=== PATIENT | female | born 1940 | race Caucasian/White ===

== ENCOUNTER 2016-03-14 10:08 | Inpatient (IN) | payer MEDICARE, OTHER ==
--- NOTE | 2016-03-14 11:26 | RAD ---
Study: Single Frontal View of the Chest. Indication:difficulty breathing Comparison: December 22, 2015. Impression: Moderate cardiomegaly without failure. Atherosclerosis aorta. Emphysema, otherwise lungs clear. No acute osseous abnormality. Electronically signed by: Solitario Beaver MD 03/14/2016 11:24
--- NOTE | 2016-03-14 11:33 | ED.PDOC ---
History of Present Illness - General Chief Complaint: Respiratory Problem Stated Complaint: increased wheezing and difficulty breathing Time Seen by Provider: 03/14/16 11:26 Additional Information: HAS BEEN SEEN X 3 IN PCP'S OFFICE PAST WEEKS. HAS GOTTEN ABX, AND STEROIDS WITH SOME WAXING AND WANING SUCCESS. NOW IS HERE AGAIN WITH TREATMENT FAILURE. - History of Present Illness Timing/Duration: 1 week Severity: moderate Improving Factors: nothing Worsening Factors: nothing Associated Symptoms: cough Allergies/Adverse Reactions: Allergies Penicillins Allergy (Verified 03/14/16 10:40) Rash Sulfa Drugs Allergy (Verified 03/14/16 10:40) Other Causes swelling to face Home Medications: Ambulatory Orders Albuterol Inhaler [Ventolin Hfa Inhaler] 90 mcg INH RTQ4 PRN 05/03/15 Albuterol Sulfate Nebs [Proventil Nebs] 1 ea INH RTQID PRN 05/03/15 Alendronate Sodium [Fosamax] 70 mg PO MO 05/03/15 Aspirin Buffered (Matt Carb-Mag [Bufferin Low Dose 81 mg] 81 mg PO BEDTIME Fluticasone/Salmeterol 250/50 [Advair 250/50 Diskus] 1 puff INH BID #0 Levothyroxine Sodium [Synthroid] 0.1 mg PO DAILY@0700 05/03/15 Lorazepam [Ativan] 1 mg PO TID 05/03/15 Metoprolol Succinate [Metoprolol Succinate ER] 100 mg PO DAILY 05/03/15 Montelukast Sodium [Singulair] 10 mg PO BEDTIME 05/03/15 Ascorbic Acid [Vitamin C] 1,000 mg PO DAILY 12/20/15 Furosemide [Lasix] 40 mg PO .[id number] 12/20/15 Nicotine Patch 21 mg [Habitrol Patch 21mg] 21 mg TOP Q72H 12/20/15 Tiotropium [place] Monohydrate [Spiriva Handihaler] 1 puff IN DAILY 12/20/15 Bifidobacterium Infantis [Align] 4 mg PO DAILY #30 cap 12/25/15 Nicotine Patch 21 mg [Habitrol Patch 21mg] 1 ea TD DAILY #14 patch 12/25/15 Pantoprazole Sodium [Protonix] 40 mg PO ACBK #14 tab 12/25/15 levoFLOXacin [Levaquin] 500 mg PO QD #14 tab 12/25/15 predniSONE [Prednisone] 5 mg PO BID #0 12/25/15 predniSONE [Prednisone] 40 mg PO DAILY #8 tab 12/25/15 Review of Systems - Review of Systems Constitutional: Denies: chills, fever EENTM: Denies: blurred vision, nose pain, nose congestion, throat swelling, mouth pain, mouth swelling Respiratory: States: cough, short of breath, other - PROD OF CLEAR SPUTUM, Cardiology: Denies: chest pain, edema, palpitations, syncope Gastrointestinal/Abdominal: Denies: abdominal pain, diarrhea, nausea, vomiting Genitourinary: States: no symptoms reported Musculoskeletal: Denies: back pain, neck pain Skin: States: no symptoms reported Neurological: States: no symptoms reported Endocrine: Denies: excessive sweating, flushing, intolerance to cold, intolerance to heat Hematologic/Lymphatic: Denies: no symptoms reported Past Medical History (General) - Patient Medical History Hx Seizures: No Hx Stroke: No Hx Dementia: No Hx Asthma: Yes Hx of COPD: Yes Hx Cardiac Disorders: Yes Hx Congestive Heart Failure: No Hx Pacemaker: No Hx Hypertension: Yes Hx Thyroid Disease: Yes Hx Diabetes: No Hx Gastroesophageal Reflux: Yes Hx Renal Disease: No Hx Cancer: No Hx of HIV: No Hx Hepatitis C: No Hx MRSA: No - Vaccination History Hx Tetanus, Diphtheria Vaccination: Yes Hx Influenza Vaccination: Yes - 2016 Hx Pneumococcal Vaccination: Yes - Social History Hx Tobacco Use: Yes Hx Chewing Tobacco Use: No Hx Alcohol Use: No Hx Substance Use: No Hx Substance Use Treatment: No Hx Depression: No Hx Physical Abuse: No Hx Emotional Abuse: No Hx Suspected Abuse: No - Female History Patient : No Family Medical History - Family History Mother Family History: No Known Name: Belle Villela Living Status: Age at (years of age): 85 Hx Family Asthma: No Hx Family Congestive Heart Failure: No Hx Family Hypertension: No Hx Family Stroke: No Hx Cardiac Disease: No Hx Family Diabetes: No Hx Family Cancer: No Hx Family;Other: Bowel obstruction Father Name: Sreedhar Villela Living Status: Age at (years of age): 79 Cause of : Heart Attack Hx Family Congestive Heart Failure: Yes Hx Family Hypertension: Yes Hx Cardiac Disease: Yes Brother Living Status: Age at (years of age): 90 Hx Family Asthma: No Hx Family Cancer: Yes - Prostate Physical Exam - Physical Exam General Appearance: Alert, Comfortable, Other - MILD RESP DISTRESS Eye Exam: bilateral normal Ears, Nose, Throat: hearing grossly normal, normal ENT inspection Neck: non-tender, full range of motion, supple Respiratory: other - PROLONGED EXP PHASE WITH WHEEZES, RALES, PROLONGED EXP PHASE, NO RHONCHI Cardiovascular/Chest: regular rate, rhythm, no murmur Gastrointestinal/Abdominal: non tender, soft, no organomegaly Back Exam: normal inspection, no CVA tenderness Extremity: normal range of motion, normal inspection, no pedal edema Neurologic: no motor/sensory deficits, normal mood/affect, oriented x 3 Skin Exam: normal color, warm/dry Lymphatic: no adenopathy Progress - EKG/XRAY/CT XRAY: chest - NSS Departure - Departure Clinical Impression: COPD (chronic obstructive pulmonary disease) with acute bronchitis Hypertension Qualifiers: Hypertension type: essential hypertension Qualifier Code: (I10) Essential ( primary) hypertension Time of Disposition: 12:03 - D/W NEIDA AGREES TO ADMIT. DDX PARTIALLY TREATED PNEUMONIA Disposition: Discharge to Home or Self Care Condition: Fair Departure Forms: ED Discharge - Pt. Copy, Patient Portal Self Enrollment Home Medications: Ambulatory Orders Albuterol Inhaler [Ventolin Hfa Inhaler] 90 mcg INH RTQ4 PRN 05/03/15 Albuterol Sulfate Nebs [Proventil Nebs] 1 ea INH RTQID PRN 05/03/15 Alendronate Sodium [Fosamax] 70 mg PO MO 05/03/15 Aspirin Buffered (Matt Carb-Mag [Bufferin Low Dose 81 mg] 81 mg PO BEDTIME Fluticasone/Salmeterol 250/50 [Advair 250/50 Diskus] 1 puff INH BID #0 Levothyroxine Sodium [Synthroid] 0.1 mg PO DAILY@0700 05/03/15 Lorazepam [Ativan] 1 mg PO TID 05/03/15 Metoprolol Succinate [Metoprolol Succinate ER] 100 mg PO DAILY 05/03/15 Montelukast Sodium [Singulair] 10 mg PO BEDTIME 05/03/15 Ascorbic Acid [Vitamin C] 1,000 mg PO DAILY 12/20/15 Furosemide [Lasix] 40 mg PO .[id number] 12/20/15 Nicotine Patch 21 mg [Habitrol Patch 21mg] 21 mg TOP Q72H 12/20/15 Tiotropium [place] Monohydrate [Spiriva Handihaler] 1 puff IN DAILY 12/20/15 Bifidobacterium Infantis [Align] 4 mg PO DAILY #30 cap 12/25/15 Nicotine Patch 21 mg [Habitrol Patch 21mg] 1 ea TD DAILY #14 patch 12/25/15 Pantoprazole Sodium [Protonix] 40 mg PO ACBK #14 tab 12/25/15 levoFLOXacin [Levaquin] 500 mg PO QD #14 tab 12/25/15 predniSONE [Prednisone] 5 mg PO BID #0 12/25/15 predniSONE [Prednisone] 40 mg PO DAILY #8 tab 12/25/15
[2016-03-14] MEDS ORDERED: IPRATROPIUM/ALBUTEROL 3 ML VIAL NEB ONE (11:52)
[2016-03-14] MEDS ORDERED: cefTRIAXone SODIUM 1 GM in SODIUM CHL 0.9% 50ML MIN-BAG+ 50 ML IVPB ONE (11:53)
[2016-03-14] MEDS ORDERED: methylPREDNISolone SODIUM SUC 125 MG/2 ML VIAL IV ONE (11:53)
[2016-03-14] MEDS ORDERED: AZITHROMYCIN IV 500 MG in SODIUM CHLORIDE 0.9% 250ML 250 ML IVPB ONE (11:54)
[2016-03-14] MEDS ORDERED: cefTRIAXone SODIUM 1 GM VIAL ONE (12:21)
[2016-03-14] MEDS ORDERED: SODIUM CHL 0.9% 50ML MIN-BAG+ 50 ML IVPB ONE (12:21)
--- NOTE | 2016-03-14 12:40 | HP ---
SUPERVISING PHYSICIAN: Nick Valiente M.D. CHIEF COMPLAINT: Increased shortness of breath with wheezing. HISTORY OF PRESENT ILLNESS: Ms. Rodriguez is a 75 year-old female with a significant history of chronic obstructive pulmonary disease and multiple exacerbations requiring hospitalization within the last year. Today, she presented to the Emergency Room complaining of worsening shortness of breath and wheezing. She noted that she had been to see her primary care providers 3 times within the last week. Initially on 03/09 she was seen in the clinic for congestion, cough and productive sputum with wheezing. She was started on a Z- Marcos and given a tapering dose of Prednisone as well as a Rocephin injection IM. She then presented back on 03/11 with no improvement in symptoms and given additional Rocephin injection. Today, she presents to the Emergency Room having failed to respond to outpatient treatment plan with significant shortness of breath. She does wear chronic oxygen but continues to smoke 1 or 2 cigarettes a week. Initial vital signs showed her to be tachycardic with 103 heart rate with blood pressure 176/72 in mild distress with pursed lip breathing , respirations 44, O2 sat was 93% on nasal cannula. Laboratory studies showed a leukocytosis of 19,000 with hemoglobin 15.7, hematocrit 51.4, platelet count was elevated at 533. A left shift was noted on differential. She was given breathing treatments in the Emergency Department and an initial loading dose of steroids as well as Rocephin after blood cultures were completed. Given that the patient had failed to respond to outpatient treatment plan in regards to her exacerbation of COPD with bronchitis with multiple rounds of antibiotics and steroids, the patient will now be admitted to the Medical/Surgical floor with concerns for early developing pneumonia for further treatment and evaluation. PAST MEDICAL HISTORY: 1. Advanced chronic obstructive pulmonary disease with frequent exacerbations with last hospitalization on 12/20/15. 2. Hypertension. 3. Hypothyroidism. 4. Hyperlipidemia. 5. Anxiety. 6. Peripheral vascular disease. 7. Pericarditis in 2009. 8. B12 deficiency. 9. Chronic tobacco abuse in a COPD patient who wears oxygen. 10. Osteoporosis. PAST SURGICAL HISTORY: 1. Laminectomy. 2. Tubal ligation. CURRENT MEDICATIONS: 1. Lasix 40 mg p.r.n. 2. Albuterol inhaler 90 mcg inhaled every 4 hours p.r.n. for shortness of breath. 3. Fosamax 70 mg p.o. monthly. 4. Albuterol sulfate nebs 1 inhaled q.i.d. as needed. 5. Vitamin C 1,000 mg daily. 6. 81 mg enteric coated aspirin at bedtime. 7. Align 4 mg daily. 8. Advair 250/50 Diskus 1 puff inhaled twice daily. 9. Synthroid 0.1 mg daily. 10. Ativan 1 mg p.o. t.i.d. 11. Metoprolol succinate extended release 100 mg daily. 12. Nicotine patch 20 mg daily. 13. Protonix 41 mg at breakfast. 14. Spiriva Handihaler 1 puff daily. 15. Current Prednisone tapering Dosepak. 16. Singulair 10 mg at bedtime. ALLERGIES: PENICILLIN AND SULFA DRUGS. FAMILY HISTORY: Father is from myocardial infarction, otherwise is noncontributory. SOCIAL HISTORY: The patient is . 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 She currently smokes 1 to 5 cigarettes per day with a previous 1 pack per week history for greater than 50 years. It is noted that she did try to quit and she continues to quit, but apparently is unsuccessful even with hospitalizations and using of oxygen. She denies any alcohol or illicit drug use. REVIEW OF SYSTEMS: Notes some fevers and chills but no unintentional weight loss. She does have some notable general malaise and is easily fatigued. CARDIOVASCULAR: Denies any chest pains or orthopnea, pedal edema or palpitations. RESPIRATORY: As per history of present illness. Worsening shortness of breath having failed to respond to outpatient treatment plan. GASTROINTESTINAL: Denies any abdominal pains, diarrhea, nausea, vomiting or constipation. GENITOURINARY: Denies any dysuria, increased frequency or any other urinary symptoms. NEUROLOGIC: She denies any dizziness, headaches or syncopal episodes. PHYSICAL EXAMINATION: VITAL SIGNS: Temperature 99.7, pulse 103, blood pressure 176/72, respirations initially 44 and labored with O2 sat 93% on nasal cannula after initial DuoNeb treatments in the Emergency Department and admission to the Medical/Surgical floor. Pulse 97, blood pressure 157/68, respirations 16. She is satting 92 to 94% on nasal cannula at 2 liters. Admission weight is 65.0 kg which is down from previous admission of 66.5 kg. She does wear oxygen at home on nasal cannula at 2.5 liters or more. GENERAL: The patient is alert and oriented. She does appear quite anxious and in mild distress secondary to increased shortness of breath but shows improvement after breathing treatments. HEENT: Tympanic membranes are clear bilaterally. Oropharynx is pink and moist without any lesions. Yjer is noted white plaques on posterior tongue. NECK: No jugular venous distention. CHEST: Significantly decreased throughout with expiratory wheezing but no obvious rhonchi or rales. She does utilized pursed lip breathing and has some mild utilization of accessory respiratory muscles with a prolonged expiratory phase. CARDIOVASCULAR: Regular rate and rhythm without appreciable murmurs, gallops, or rubs. ABDOMEN: Soft, non-tender. Positive bowel sounds. EXTREMITIES: No clubbing, cyanosis or edema. NEUROLOGIC: She is alert and oriented times three. Facial features are symmetrical. Cranial nerves II-XII are grossly intact. Extraocular movements are within normal limits. No nystagmus. There is no notable focalizing or lateralizing neurologic or motor deficits. LABORATORY: White count on admission was 19.0, hemoglobin 15.7, hematocrit 51.4 , platelet count 553,000. Differential shows a left shift. Chemistries show normal electrolytes with potassium 3.6, BUN 18, creatinine 0.57 with carbon dioxide showing 38, glucose 127. Liver functions were all within normal limits. BNP was slightly elevated at 115. Urinalysis is pending. Sputum culture is pending. Blood culture is pending. RADIOLOGY: Chest x-ray performed in the Emergency Department prior to admission to the floor per radiology interpretation shows mild cardiomegaly without any failure, emphysematous changes are noted, otherwise lungs appear clear. ASSESSMENT: 1. Acute exacerbation of chronic obstructive pulmonary disease and chronic bronchitis having failed to respond to outpatient treatment plan with concerns for early development of community-acquired pneumonia. 2. Leukocytosis secondary to exacerbation of chronic obstructive pulmonary disease and chronic steroid use. 3. Chronic tobacco abuse. 4. Hypertension. 5. Anxiety. 6. Polycythemia chronic with elevated blood cells 6.2 and hematocrit 51.4 in a chronic smoker. 7. History of hypothyroidism on supplementation. 8. Thrush secondary to corticosteroid therapy and inhaled steroids along with recent antibiotic therapy PLAN: The patient will be admitted to the Medical/Surgical floor for continued treatment and evaluation having failed to respond to outpatient treatment plan in regards to exacerbation of COPD and bronchitis with concerns for community- acquired pneumonia. She will be started on parenteral antibiotics to include Rocephin, Azithromycin and monitored closely. Will await sputum culture to help further target antibiotic therapy. Should she not show any clinical improvement since she has previously been on Rocephin and Azithromycin in the outpatient setting, will certainly consider changing antibiotics probably to Levaquin, but until the patient shows a clinical decline will continue with the current plan of care. She will have aggressive pulmonary hygiene with q.i.d. DuoNeb treatments and p.r.n. as needed. I will go ahead and provide her with a nicotine patch and schedule her Ativan as she is quite anxious. At this point, she still wheezes a little bit. Will give a breathing treatment and I will give her 2 mag loading dose in efforts to help to improve her ventilatory effort . She was given Solu-Medrol in the Emergency Department initially 125 mg. This will be continued up with 40 mg every 8 hours times 3 doses with anticipation of changing to Prednisone p.o. after the third dose. Estimated length of stay to be 2 to 3 days. Until then, will continue to monitor the patient closely and treat appropriately. #[id number] [facility]
[2016-03-14] MEDS ORDERED: ACETAMINOPHEN 325 MG TAB PO PRN (13:15)
[2016-03-14] MEDS ORDERED: PANTOPRAZOLE INJECTION 40 MG in SODIUM CHLORIDE 0.9% 100ML 100 ML IVPB ONE (13:22)
[2016-03-14] MEDS ORDERED: IV SET AND CAP CHANGE INJ INJ SCH (13:30)
[2016-03-14] MEDS ORDERED: PANTOPRAZOLE SODIUM IV 40 MG VIAL IV ONE (14:00)
[2016-03-14] MEDS ORDERED: SODIUM CHLORIDE 0.9% 250ML 250 ML ONE (14:02)
[2016-03-14] MEDS ORDERED: AZITHROMYCIN IV 500 MG VIAL IVPB ONE (14:02)
[2016-03-14] MEDS ORDERED: MAGNESIUM SULFATE PREMIX 2GM 50 ML IVPB ONE (14:27)
[2016-03-14] MEDS ORDERED: NICOTINE PATCH 14 MG TD SCH (16:30)
[2016-03-14] MEDS ORDERED: LORazepam 1 MG TAB ONE ×2 (16:55→21:06)
[2016-03-14] MEDS ORDERED: MAGNESIUM SULFATE PREMIX 2GM 2 GM in PREMIX BAG 1 BAG IVPB ONE (17:00)
[2016-03-14] MEDS: guaiFENesin ER TAB 600 MG TAB PO SCH ×2 (17:01→21:21)
[2016-03-14] MEDS: LORazepam 0.5 MG TAB PO SCH ×2 (17:06→21:22)
[2016-03-14] MEDS: methylPREDNISolone SODIUM SUC 125 MG/2 ML VIAL IV SCH ×2 (18:40→23:56)
[2016-03-14] MEDS: IPRATROPIUM/ALBUTEROL 3 ML VIAL INH SCH (21:14)
[2016-03-14] MEDS ORDERED: FLUTICASONE/SALMETEROL 250/50 14 PUFF/17 GM INH INH ONE (21:20)
[2016-03-14] MEDS: SODIUM CHLORIDE 0.9% (FLUSH) 10 ML SYG IV SCH (21:22)
[2016-03-14] MEDS: SODIUM CHLORIDE 0.9% (FLUSH) 10 ML SYG IV PRN (23:56)
[2016-03-15] MEDS: ALBUTEROL SULFATE 2.5 MG/3 ML VIAL NEB PRN ×2 (01:17→04:56)
[2016-03-15] MEDS: methylPREDNISolone SODIUM SUC 125 MG/2 ML VIAL IV SCH (05:34)
[2016-03-15] MEDS: SODIUM CHLORIDE 0.9% (FLUSH) 10 ML SYG IV PRN (05:36)
[2016-03-15] MEDS ORDERED: LEVOTHYROXINE SODIUM 0.1 MG TAB PO SCH (07:00)
[2016-03-15] MEDS ORDERED: PANTOPRAZOLE SODIUM TAB 40 MG PO SCH (07:00)
--- NOTE | 2016-03-15 07:35 | RAD ---
EXAM DESCRIPTION: XR CHEST 2 VIEWS CLINICAL HISTORY: Pneumonia COMPARISON: 03/14/2016 TECHNIQUE: Two-views of the chest. FINDINGS: Normal heart size. Atherosclerotic aorta. Mediastinal contours are normal. Mild vascular congestion without edema, focal infiltrate or effusion. Lungs are hyperinflated No acute bony abnormality IMPRESSION: Hyperinflation consistent with emphysema No acute cardiopulmonary process otherwise Electronically signed by: Suleman Morton MD 03/15/2016 07:32
[2016-03-15] MEDS ORDERED: SODIUM CHL 0.9% 50ML MIN-BAG+ 50 ML IVPB ONE (07:49)
[2016-03-15] MEDS ORDERED: cefTRIAXone SODIUM 1 GM VIAL ONE (07:50)
[2016-03-15] MEDS ORDERED: KCL 20MEQ/0.45% NS 1,000 ML IVS PRN (08:05)
[2016-03-15] MEDS: IPRATROPIUM/ALBUTEROL 3 ML VIAL INH SCH ×4 (08:40→18:01)
[2016-03-15] MEDS ORDERED: TIOTROPIUM INHALER INH SCH (09:00)
[2016-03-15] MEDS ORDERED: METOPROLOL SUCCINATE XL 100 MG TAB PO SCH (09:00)
[2016-03-15] MEDS ORDERED: FLUTICASONE/SALMETEROL 250/50 14 PUFF/17 GM INH INH SCH (09:00)
[2016-03-15] MEDS ORDERED: BIFIDOBACTERIUM INFANTIS 4 MG CAP PO SCH (09:00)
[2016-03-15] MEDS: guaiFENesin ER TAB 600 MG TAB PO SCH (09:32)
[2016-03-15] MEDS: NYSTATIN SUSPENSION 5 ML UD MT SCH ×2 (09:32→13:54)
[2016-03-15] MEDS: LORazepam 1 MG TAB PO SCH ×2 (09:32→14:31)
[2016-03-15] MEDS: SODIUM CHLORIDE 0.9% (FLUSH) 10 ML SYG IV SCH (09:33)
[2016-03-15] MEDS ORDERED: cefTRIAXone SODIUM 1 GM in SODIUM CHL 0.9% 50ML MIN-BAG+ 50 ML IVPB SCH (10:00)
[2016-03-15] MEDS ORDERED: SODIUM CHLORIDE 0.9% 500ML 500 ML IVS ONE (10:57)
[2016-03-15] MEDS ORDERED: methylPREDNISolone SODIUM SUC 125 MG/2 ML VIAL IV SCH (11:00)
[2016-03-15] MEDS ORDERED: SODIUM CHLORIDE 0.9% 250ML 250 ML ONE (11:06)
[2016-03-15] MEDS ORDERED: AZITHROMYCIN IV 500 MG VIAL IVPB ONE (11:07)
[2016-03-15] MEDS ORDERED: AZITHROMYCIN IV 500 MG in SODIUM CHLORIDE 0.9% 250ML 250 ML IVPB SCH (13:30)
[2016-03-15] MEDS ORDERED: RACEPINEPHRINE 2.25% 0.5 ML UD NEB ONE (15:29)
[2016-03-15] MEDS ORDERED: NICOTINE PATCH 21 MG TD ONE ×2 (15:56)
[2016-03-15 16:14] VITALS: BP 147/69; TEMP 97; O2SAT 94
--- NOTE | 2016-03-15 16:49 | DS ---
TRANSFERRED TO [facility]: 03/15/16 SUPERVISING PHYSICIAN: Nick Valiente M.D. DISCHARGE DIAGNOSIS: 1. Acute exacerbation of chronic obstructive pulmonary disease with a chronic bronchitis having failed to respond to outpatient treatment plan with concerns for early development of community-acquired pneumonia showing acute deterioration requiring a high level of care to transfer to ICU. Acute deterioration with respiratory distress requiring BiPAP assistance. 2. Leukocytosis secondary to exacerbation of chronic obstructive pulmonary disease and chronic steroid use. 3. Chronic tobacco abuse. 4. Hypertension. 5. Anxiety. 6. Polycythemia, chronic with elevated red cells on admission 6.2 and hematocrit 51.4 in a chronic smoker. 7. History of hypothyroidism on supplementation. 8. Thrush secondary to corticosteroid therapy and inhaled steroids along with recent antibiotic therapy HISTORY OF PRESENT ILLNESS: Ms. Rodriguez is a 75 year-old female with a significant history of chronic obstructive pulmonary disease and multiple exacerbations requiring hospitalization within the last year. On date of admission, 03/14/16, she presented to the Emergency Room complaining of worsening shortness of breath and wheezing. She noted that she had been seen in her primary care provider's clinic 3 times within the last week. Initially on 03/09 she was seen in the clinic for congestion, cough and productive sputum with wheezing. She was started on a Z-Marcos and given a tapering dose of Prednisone as well as a Rocephin injection IM. She then presented back on with no improvement in symptoms and given additional Rocephin injection. On date of admission, 03/14/16, she presented to the Emergency Department having failed to respond to outpatient treatment plan with significant shortness of breath. She does wear oxygen chronically but continues to smoke 1 to 2 cigarettes a week. Initial vital signs in the Emergency Department showed her to be tachycardic with 103 heart rate with blood pressure 176/73 in mild distress with pursed lip breathing, respirations 44, O2 sat was 93% on nasal cannula. Laboratory studies showed a leukocytosis of 19,000 with hemoglobin 15.7, hematocrit 51.4, platelet count was 533,000. A left shift was noted on differential. She was given breathing treatments in the Emergency Department and an initial loading dose of steroids, Solu-Medrol, as well as Rocephin after blood cultures were completed. Given that the patient had failed to respond to outpatient treatment plan in regards to her exacerbation of COPD with bronchitis with multiple rounds of antibiotics and steroids, the patient was admitted to the Medical/Surgical floor with concerns for early developing pneumonia and for further treatment and evaluation. LABORATORY: White count on admission was 19,000, at time of discharge and transfer was 14.7. Hemoglobin 16.8, hematocrit 55.5 at discharge. Platelet count 120,000, differential continue to show a left shift. Blood gas analysis just before placing on BiPAP and transfer showed a pH of 7.21 with bicarb of 35.3. PC02 was 91, P02 76, saturation 94% on 3 liters nasal cannula. Chemistries initially showed electrolytes with a normal potassium, sodium with carbon dioxide 38, BUN 18, creatinine 0.57, calcium 8.7, magnesium 1.8, liver function studies within normal limits. BNP slightly elevated at 118. At time of discharge on AM blood draw, electrolytes remained unchanged. Carbon dioxide was slightly elevated at 39, BUN and creatinine were essentially the same with 17 BUN and creatinine 0.53. Calcium 8.6. Urine on admission showed to be within normal limits. MICROBIOLOGY: She had 2 sets of blood cultures that remained negative at 24 hours. Influenza type A and B antigen were both negative for A and B and sputum culture was pending at time of transfer. RADIOLOGY: Initial chest x-ray in the Emergency Department per radiology interpretation showed moderate cardiomegaly without failure and emphysema, otherwise lungs were clear. Repeat chest x-ray this morning on 03/15 per radiology interpretation showed hyperinflation consistent with emphysema, no acute cardiopulmonary processes were otherwise noted. HOSPITAL COURSE: Ms. Rodriguez is a 75 year-old female patient with a significant history of chronic obstructive pulmonary disease and recent exacerbation having failed to respond to outpatient treatment plan. She was admitted on 03/14/16 as noted above and was started on steroids, initially a loading dose of 125 followed up with 60 mg every 6 hours for 3 doses. She was started on aggressive pulmonary hygiene included CPT, Duoneb treatments q.i.d. and p.r.n. albuterol. She was also started on antibiotics parenterally including Rocephin and azithromycin. She was given IV fluids to include half normal saline with 20 of potassium that ran at 100 mils per hour. Initially, she showed some slight improvement, initial blood pressures in the Emergency Department showed 176/72, respirations 44, saturation 93% on nasal cannula at rest. Heart rate 103, T-max 99.7. At time of discharge this morning on 03/15, she was showing some slight improvement with a blood pressure of 137/66, heart rate 92, respirations anywhere from 18 to 22 and T-max 97.2. Saturation 95% on nasal cannula at rest at 2 liters. I was called at 1500 by the nurses regarding the patient had made a decline in respiratory efforts and was again showing some respiratory distress. On examination, the patient was found to be in mild distress with a respiratory effort showing a respiratory rate of 38 to 40s, saturation 90% on nasal cannula at rest. The patient was given breathing treatments with minimal improvement, placed on BiPAP and settings that patient could tolerate and was showing some improvement, however, blood gases continued to show a respiratory acidosis. Therefore, request for transfer was initiated to [facility] for high level care. She was accepted to ICU at [facility] by Dr. Us and was to be transferred via air ambulance. PLAN: The patient is discharged to be transferred to [facility] at 1600 by air ambulance on BiPAP. Condition was serious but stable with patient tolerating BiPAP and alert and oriented. At time of transfer she was alert and oriented and on BiPAP. Blood pressure showing 147/67, saturation 94% on BiPAP. Heart rate 95, respirations 24 to 30. #[id number] [facility]
[2016-03-15] MEDS ORDERED: NICOTINE PATCH 14 MG TD SCH (21:00)
[2016-03-16] MEDS ORDERED: LEVOTHYROXINE SODIUM 0.1 MG TAB PO SCH (06:30)
[2016-03-16] MEDS ORDERED: PANTOPRAZOLE SODIUM TAB 40 MG PO SCH (06:30)
== END 2016-03-15 16:45 | disposition short-term general hospital (02) | DRG 190 ==
LOC: ER 10:08 → MS 12:39 → OBSVTOIN 12:39
PROVIDERS: ADMIT Nurse Practitioner Family; ATTEND Nurse Practitioner Family
DX: J44.0 Chronic obstructive pulmonary disease with (acute) lower respiratory infection (principal); J18.9 Pneumonia, unspecified organism; J20.9 Acute bronchitis, unspecified; B37.0 Candidal stomatitis; T38.0X5A Adverse effect of glucocorticoids and synthetic analogues, initial encounter; D75.1 Secondary polycythemia; E87.2 Acidosis; J44.1 Chronic obstructive pulmonary disease with (acute) exacerbation; F17.210 Nicotine dependence, cigarettes, uncomplicated; I10 Essential (primary) hypertension; F41.9 Anxiety disorder, unspecified; E03.9 Hypothyroidism, unspecified; E78.5 Hyperlipidemia, unspecified; I73.9 Peripheral vascular disease, unspecified; M81.0 Age-related osteoporosis without current pathological fracture; E53.8 Deficiency of other specified B group vitamins; Z99.81 Dependence on supplemental oxygen; Z79.51 Long term (current) use of inhaled steroids; Z79.52 Long term (current) use of systemic steroids; Z79.899 Other long term (current) drug therapy; Z88.0 Allergy status to penicillin; Z88.2 Allergy status to sulfonamides

== ENCOUNTER 2016-03-27 15:25 | Inpatient (IN) | payer MEDICARE, OTHER ==
[2016-03-27] MEDS ORDERED: SODIUM PHOS/BIPHOS ENEMA ADULT 133 ML BTTL PR PRN (16:48)
[2016-03-27] MEDS ORDERED: ACETAMINOPHEN 500 MG TAB PO PRN (16:48)
[2016-03-27] MEDS ORDERED: MAGNESIUM HYDROXIDE 30 ML UD PO PRN (16:48)
[2016-03-27] MEDS ORDERED: ALENDRONATE SODIUM TAB 70 MG TAB PO SCH (19:30)
[2016-03-27] MEDS: FLUTICASONE/SALMETEROL 250/50 14 PUFF/17 GM INH INH SCH (19:59)
[2016-03-27] MEDS: BUDESONIDE NEBS 0.5 MG/2 ML VIAL NEB SCH (19:59)
--- NOTE | 2016-03-27 20:25 | PCM.CORE ---
Physician DVT/VTE - Prophylaxis Currently: Patient already on anticoagulation therapy - ann - Nurse DVT Assessment & Total Each Risk Factor Represents 3 Points: Age over 75 years, Medical PT with Hx of NV, CHF, Severe infection/sepsis Each Risk Factor Represents 1 Point: Hx of smoking past year Each Risk Factor is 1 Point: Varicose Veins/Edema Legs, Obesity (BMI >25), Serious Lung disease (pnemonia <1month, COPD, emphysema,etc) DVT Assessment Score: 10 - 5 or more Very High Risk Treatments: Early Ambulation *, Sequential Compression Device
[2016-03-27] MEDS ORDERED: APIXABAN 2.5 MG TAB PO ONE ×2 (20:35→21:15)
[2016-03-27] MEDS ORDERED: ASPIRIN (CHEWABLE) 81 MG TAB ONE (20:37)
[2016-03-27] MEDS ORDERED: NON-FORMULARY MEDICATION 1 EA MIS (Apixaban [Eliquis] 5 MG) PO SCH (21:00)
[2016-03-27] MEDS ORDERED: ASPIRIN BUFFERED PO SCH (21:00)
[2016-03-27] MEDS ORDERED: [UNRECOGNIZED DRUG - OTHER] PO SCH (21:00)
[2016-03-27] MEDS ORDERED: FUROSEMIDE 40 MG TAB PO SCH (21:00)
[2016-03-27] MEDS: MONTELUKAST SODIUM 10 MG TAB PO SCH (21:19)
[2016-03-27] MEDS: GABAPENTIN 100 MG CAP PO SCH (21:20)
[2016-03-27] MEDS: predniSONE 10 MG TAB PO SCH (21:20)
[2016-03-27] MEDS: LORazepam 0.5 MG TAB PO PRN (21:41)
--- NOTE | 2016-03-27 22:14 | HP ---
SUPERVISING PHYSICIAN: Suleman Boles M.D. CHIEF COMPLAINT: Weakness. HISTORY OF PRESENT ILLNESS: Ms. Rodriguez is a 75 year-old female with a significant history of chronic obstructive pulmonary disease with exacerbation with a recent exacerbation on 03/14/16. She was admitted to [facility] and required transfer on 03/15/16 when she experienced a deterioration in her respiratory efforts resulting in distress requiring BiPAP assistance and ultimately transferred to [facility] for a higher level of care. She was transferred to [facility] on 03/15/16 and was treated there at their facility in ICU and then transitioned to the Medical/ Surgical floor for continued care as she improved. Clinically she improved but had significant deconditioning requiring the continuation of physical therapy to ensure the patient is able to return home safely. She was discharged on from [facility] and transferred to [facility] for Swing Bed on the same date. She was admitted to Swing Bed in stable condition. PAST MEDICAL HISTORY: 1. Acute exacerbation of chronic obstructive pulmonary disease resulting in significant respiratory distress requiring transferring to [facility] for a higher level of care. 2. Advanced chronic obstructive pulmonary disease with multiple exacerbations with the last hospitalization as noted above. 3. Hypertension. 4. Hypothyroidism. 5. Hyperlipidemia. 6. Anxiety. 7. Peripheral vascular disease. 8. Pericarditis in 2009. 9. B12 deficiency. 10. Chronic tobacco abuse in a COPD patient who wears chronic O2. 11. Osteoporosis. 12. New onset of atrial fibrillation diagnosed at [facility] this past hospitalization being placed on Amiodarone for rate control and started on Eliquis for anti- coagulation. PAST SURGICAL HISTORY: 1. Laminectomy. 2. Tubal ligation. CURRENT MEDICATIONS: 1. Prednisone 10 mg twice daily. 2. Spiriva 1 puff daily. 3. Potassium chloride 20 mEq daily. 4. Protonix 40 mg at breakfast. 5. Nicotine patch 1 daily 21 mg. 6. Singulair 10 mg at bedtime. 7. Metoprolol succinate extended release 100 mg. 8. Ativan 1 mg 3 times a day as needed for anxiety. 9. Synthroid 0.1 mg at breakfast. 10. Neurontin 100 mg twice daily. 11. Lasix 20 mg twice daily. 12. Advair 250/50 Diskus 1 puff inhaled twice daily. 13. Pulmicort 0.5 mg nebulized 3 times a day. 14. Align 4 mg daily. 15. Aspirin 81 mg at bedtime. 16. Vitamin C 1,000 mg daily. 17. Brovana 15 mcg inhaled twice daily. 18. Eliquis 5 mg twice daily. 19. Amiodarone 200 mg daily. 20. Fosamax 70 mg daily. 21. Proventil nebs 1 inhaled every 6 hours p.r.n. for bronchial spasms. ALLERGIES: PENICILLIN AND SULFA DRUGS. FAMILY HISTORY: Father is from myocardial infarction, otherwise noncontributory. SOCIAL HISTORY: The patient is . 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 She currently does smoke still 1 to 5 cigarettes per day with a previous 1 pack per week history for greater than 50 years. She denies any alcohol or illicit drug use. PHYSICAL EXAMINATION: VITAL SIGNS: Temperature 98.4, pulse 60, blood pressure 125/65, respirations 20 , O2 sat showing 94% on nasal cannula at rest. Admission weight is 67.2 kg GENERAL: The patient upon admission to Swing Bed shows to be in no acute distress. She appears to be feeling better. Just notes that she continues to be weak from her previous hospitalizations but no respiratory distress. In fact , she notes that she has had significant improvement in her respiratory effort after being treated at [facility]. HEENT: Tympanic membranes are clear bilaterally. Oropharynx is pink and moist without any lesions. NECK: No jugular venous distention noted. CHEST: Lungs today are dramatically improved from previous admission noting to be equal bilaterally and clear, just somewhat diminished towards the bases. There is no rhonchi, wheezing or rales noted. CARDIOVASCULAR: Slightly irregular rate and rhythm without appreciable murmurs , gallops, or rubs with a controlled ventricular rate. ABDOMEN: Soft, non-tender. Positive bowel sounds. EXTREMITIES: No clubbing or cyanosis. There is 1 to 2+ pitting edema to the lower extremities bilaterally. NEUROLOGIC: She is alert and oriented times three. Facial features are symmetrical. Extraocular movements are within normal limits. There is no nystagmus. She is able to speak in full sentences without any difficulty. There is no notable localizing or focalizing neurological motor deficits. LABORATORY: CBC and CMP are pending. Urinalysis is pending. RADIOLOGY: Chest two view is pending. ASSESSMENT: 1. Recent discharge from [facility] for exacerbation of chronic obstructive pulmonary disease with acute respiratory failure requiring BiPAP and higher level care with the patient showing good clinical improvement in her respiratory function but continuing to have deconditioning and weakness secondary to multiple days in hospital and underlying co-morbidities and pneumonia. She now requires Swing Bed admission for continued rehabilitation and reconditioning. 2. History of chronic obstructive pulmonary disease with multiple exacerbations with last hospitalization on 12/20/15 and then again on 03/14/16 requiring transfer to [facility] on for acute respiratory failure. 3. Chronic tobacco abuse 4. Hypertension. 5. Anxiety disorder taking Lorazepam p.r.n. 6. Polycythemia chronic secondary to chronic obstructive pulmonary disease in a chronic smoker. 7. History of hypothyroidism on supplementation. PLAN: The patient will be admitted to Swing Bed for continued rehabilitation and reconditioning. Physical Therapy will be consulted for evaluation and treatment. Once her home medications have all been updated and verified, those will be restarted. She will be started on DVT prophylaxis as per protocol. Will continue to follow the patient during Swing Bed admission medically in regards to her chronic obstructive pulmonary disease and other underlying co- morbidities, and treat appropriately as needed. Will await baseline laboratory studies in the morning as well as a chest x-ray and monitor closely. Anticipate length of stay to be anywhere from 3 to 5 days with ultimate discharge decision with Physical Therapy and the patient's clinical improvement. Until then, will continue to monitor the patient closely and treat appropriately. #[id number] [facility]
[2016-03-28] MEDS: ALENDRONATE SODIUM TAB 70 MG TAB PO SCH (06:40)
[2016-03-28] MEDS ORDERED: LEVOTHYROXINE SODIUM 0.1 MG TAB PO SCH (07:00)
[2016-03-28] MEDS ORDERED: PANTOPRAZOLE SODIUM TAB 40 MG PO SCH (07:00)
--- NOTE | 2016-03-28 07:10 | RAD ---
EXAM: Two view chest. INDICATION: Chest pain. COMPARISON: Chest x-ray: 03/15/2016. FINDINGS: There is a right basilar airspace opacity with a small right pleural effusion. The left lung is clear. The heart is normal in size. There is no pneumothorax. IMPRESSION: Right basilar airspace opacity with right pleural effusion Electronically signed by: Jef Salter MD 03/28/2016 7:10 AM FACTORY MANAGER
[2016-03-28] MEDS ORDERED: APIXABAN 2.5 MG TAB PO ONE (08:24)
[2016-03-28] MEDS ORDERED: ASPIRIN (CHEWABLE) 81 MG TAB ONE (08:25)
[2016-03-28] MEDS ORDERED: POTASSIUM CHLORIDE 10 MEQ TAB PO ONE (08:25)
[2016-03-28] MEDS ORDERED: ASCORBIC ACID 500 MG TAB ONE (08:26)
[2016-03-28] MEDS: BUDESONIDE NEBS 0.5 MG/2 ML VIAL NEB SCH ×3 (08:45→20:58)
[2016-03-28] MEDS: TIOTROPIUM INHALER INH SCH (08:45)
[2016-03-28] MEDS: FLUTICASONE/SALMETEROL 250/50 14 PUFF/17 GM INH INH SCH ×2 (08:45→20:59)
[2016-03-28] MEDS ORDERED: POTASSIUM CHLORIDE 10 MEQ TAB PO SCH (09:00)
[2016-03-28] MEDS: FUROSEMIDE 40 MG TAB PO SCH ×2 (09:18→17:40)
[2016-03-28] MEDS: AMIODARONE HCL 200 MG TAB PO SCH (09:18)
[2016-03-28] MEDS: predniSONE 10 MG TAB PO SCH ×2 (09:18→20:47)
[2016-03-28] MEDS: ASCORBIC ACID 500 MG TAB PO SCH (09:19)
[2016-03-28] MEDS: GABAPENTIN 100 MG CAP PO SCH ×2 (09:19→20:47)
[2016-03-28] MEDS: BIFIDOBACTERIUM INFANTIS 4 MG CAP PO SCH (09:19)
[2016-03-28] MEDS: APIXABAN 2.5 MG TAB PO SCH ×2 (09:19→20:47)
[2016-03-28] MEDS: NICOTINE PATCH 21 MG TD SCH (09:19)
[2016-03-28] MEDS: DOCUSATE SODIUM 100 MG CAP PO SCH (09:19)
[2016-03-28] MEDS: METOPROLOL SUCCINATE XL 100 MG TAB PO SCH (09:20)
[2016-03-28] MEDS ORDERED: ASPIRIN EC 81 MG TAB PO ONE (09:22)
[2016-03-28] MEDS: LORazepam 0.5 MG TAB PO PRN ×3 (09:36→21:43)
[2016-03-28] MEDS ORDERED: SODIUM CHLORIDE 0.9% (FLUSH) 10 ML SYG IV PRN (09:44)
[2016-03-28] MEDS ORDERED: HEPARIN SODIUM 100 U/ML 5 ML SYG IV PRN (09:47)
[2016-03-28] MEDS ORDERED: HEPARIN SODIUM 100 U/ML 5 ML SYG IV SCH (10:00)
[2016-03-28] MEDS ORDERED: SODIUM CHLORIDE 0.9% (FLUSH) 10 ML SYG IV SCH (10:00)
[2016-03-28] MEDS ORDERED: ASPIRIN BUFFERED PO SCH (12:00)
[2016-03-28] MEDS ORDERED: [UNRECOGNIZED DRUG - OTHER] PO SCH (12:00)
[2016-03-28] MEDS: ASPIRIN EC 81 MG TAB PO SCH (12:36)
[2016-03-28] MEDS: ALBUTEROL SULFATE 2.5 MG/3 ML VIAL NEB PRN ×2 (17:46→20:58)
--- NOTE | 2016-03-28 20:06 | PN ---
DATE: 03/28/16 SUPERVISING PHYSICIAN:: Suleman Boles MD SUBJECTIVE: The patient continues to do well. She has had no shortness of breath through the night and she has done well with physical therapy. She has had no fevers. OBJECTIVE: VITAL SIGNS: Temperature 98.3, pulse 65, blood pressure 103/60, respirations 18, saturation 96% on nasal cannula at rest. I&O's are balanced with a negative 60 deficit with 840 in and 900 out. CHEST: Lungs are essentially clear to auscultation, only very faint distant wheezing with very good aeration the the entire chest bilaterally. There is no rhonchi or rales. HEART: Slightly irregular rate and rhythm. ABDOMEN: Soft, non-tender, positive bowel sounds. EXTREMITIES: 1+ pitting edema from the ankles down. NEUROLOGICAL: She is alert and oriented x 3. LABORATORY: White count 21.9, hemoglobin 15.0, hematocrit 40.7, platelet count 427,000. Differential does show a left shift but the patient has been on high dose steroids for the last week. Chemistries show potassium 4.6, chloride 139, carbon dioxide 39, BUN 23, creatinine 0.78, calcium 8.6. Liver functions all within normal limits. Urine showed to have a moderate amount of blood with 20 to 30 red blood cells, rare bacteria, 1 to 3 white blood cells. RADIOLOGY: Chest x-ray 2-view for admission to [facility] per radiology interpretation shows a right basilar air space opacity with a right pleural effusion. ASSESSMENT: 1. Recent discharge from [facility] for exacerbation of chronic obstructive pulmonary disease with acute respiratory failure requiring BiPAP and a higher level of care with transfer showing good clinical improvement in respiratory function but continuing to show some deconditioning and weakness secondary to multiple days in the hospital and extensive chronic obstructive pulmonary disease, now requiring Swing bed admission for continued rehabilitation and conditioning. 2. History of chronic obstructive pulmonary disease with multiple exacerbations with last hospitalization on 12/20/15 and then again on 03/14/16 requiring transfer as noted above to [facility] on 03/15/16 for acute respiratory failure. 3. Chronic tobacco abuse. 4. Hypertension. 5. Anxiety disorder, taking Lorazepam. 6. Polycythemia, chronic, secondary to chronic obstructive pulmonary disease in a chronic smoker. 7. History of hypothyroidism. 8. Leukocytosis more likely secondary to chronic high dose steroids in the previous admission. 9. Right pleural effusion with right basilar air space opacity of on radiographic studies with the patient being stable and showing good clinical improvement. PLAN: Will continue with Swing bed admission and she will continue with current plan of care for rehabilitation and physical therapy. She is doing well in regards to respiratory efforts. Will continue to monitor closely and anticipate discharge at the discretion of physical therapy. Will await arrangements for Abreva breathing treatments, until then continue with Advair. Until discharge, we will monitor the patient closely and treat appropriately. #[id number] [facility]
[2016-03-28] MEDS ORDERED: PANTOPRAZOLE SODIUM TAB 40 MG PO ONE (20:14)
[2016-03-28] MEDS ORDERED: LEVOTHYROXINE SODIUM 0.1 MG TAB ONE (20:14)
[2016-03-28] MEDS: MONTELUKAST SODIUM 10 MG TAB PO SCH (20:47)
[2016-03-29] MEDS: LEVOTHYROXINE SODIUM 0.1 MG TAB PO SCH (06:15)
[2016-03-29] MEDS: PANTOPRAZOLE SODIUM TAB 40 MG PO SCH (06:15)
[2016-03-29] MEDS ORDERED: LEVOTHYROXINE SODIUM 0.1 MG TAB PO SCH (06:30)
[2016-03-29] MEDS: POTASSIUM CHLORIDE 10 MEQ TAB PO SCH (07:32)
[2016-03-29] MEDS: BUDESONIDE NEBS 0.5 MG/2 ML VIAL NEB SCH ×3 (08:25→20:20)
[2016-03-29] MEDS: TIOTROPIUM INHALER INH SCH (08:25)
[2016-03-29] MEDS: FLUTICASONE/SALMETEROL 250/50 14 PUFF/17 GM INH INH SCH ×2 (08:26→20:20)
[2016-03-29] MEDS: GABAPENTIN 100 MG CAP PO SCH ×2 (09:03→20:44)
[2016-03-29] MEDS: predniSONE 10 MG TAB PO SCH ×2 (09:03→20:44)
[2016-03-29] MEDS: DOCUSATE SODIUM 100 MG CAP PO SCH (09:03)
[2016-03-29] MEDS: METOPROLOL SUCCINATE XL 100 MG TAB PO SCH (09:03)
[2016-03-29] MEDS: FUROSEMIDE 40 MG TAB PO SCH ×2 (09:04→16:45)
[2016-03-29] MEDS: AMIODARONE HCL 200 MG TAB PO SCH (09:05)
[2016-03-29] MEDS: ASCORBIC ACID 500 MG TAB PO SCH (09:05)
[2016-03-29] MEDS: BIFIDOBACTERIUM INFANTIS 4 MG CAP PO SCH (09:05)
[2016-03-29] MEDS: NICOTINE PATCH 21 MG TD SCH (09:05)
[2016-03-29] MEDS: ASPIRIN EC 81 MG TAB PO SCH (09:05)
[2016-03-29] MEDS: APIXABAN 2.5 MG TAB PO SCH ×2 (09:05→20:44)
[2016-03-29] MEDS: LORazepam 0.5 MG TAB PO PRN ×2 (12:06→20:44)
[2016-03-29] MEDS: ALBUTEROL SULFATE 2.5 MG/3 ML VIAL NEB PRN (20:20)
[2016-03-29] MEDS: MONTELUKAST SODIUM 10 MG TAB PO SCH (20:44)
--- NOTE | 2016-03-29 21:30 | PN ---
DATE: 03/29/16 SUPERVISING PHYSICIAN: Nick Valiente M.D. SUBJECTIVE: The patient is sitting up in her chair. She states she is feeling much better. She has had no complaints of chest pain, shortness of breath or nausea or vomiting. She still gets a little short of breath with some exertion but it is getting better and better. She continues to progress well with physical therapy. OBJECTIVE: VITAL SIGNS: She is afebrile, heart rate 68, blood pressure 110/57, O2 sat 94% on 2 liters nasal cannula. There are no new labs or films to report at this time. ASSESSMENT: 1. Exacerbation of chronic obstructive pulmonary disease recently discharged from [facility] to include acute respiratory failure requiring BiPAP and being transferred to [facility] for Swing Bed admission for strengthening and conditioning. 2. Weakness from previous hospital admission and requiring strengthening and conditioning as a Swing Bed admission. 3. Chronic tobacco abuse. 4. Hypertension. 5. Anxiety disorder. 6. Polycythemia that is chronic most likely secondary to chronic obstructive pulmonary disease and tobacco abuse. 7. Hypothyroidism. 8. Leukocytosis most likely due to chronic high dose steroid use. 9. Right pleural effusion with right basilar airspace opacity on radiographic studies with the patient continuing to be stable and showing good clinical improvement. PLAN: We will continue with Swing Bed admission including her physical therapy for strengthening and conditioning. I would like to get her started on Brovana and we will order that for her to be started at discharge. Until then, we will continue with her Advair. She will most likely have to go home on at least a low dose of steroids that she may have to be on as a chronic medication, but we will evaluate that as she continues her rehab here as a Swing Bed patient. Will continue to monitor the patient closely and follow as needed. Dr. Valiente is the collaborating physician available for consultation. #[id number] [facility]
[2016-03-30] MEDS: PANTOPRAZOLE SODIUM TAB 40 MG PO SCH (06:56)
[2016-03-30] MEDS: LEVOTHYROXINE SODIUM 0.1 MG TAB PO SCH (06:56)
[2016-03-30] MEDS: POTASSIUM CHLORIDE 10 MEQ TAB PO SCH (07:59)
[2016-03-30] MEDS: FLUTICASONE/SALMETEROL 250/50 14 PUFF/17 GM INH INH SCH ×2 (08:52→20:25)
[2016-03-30] MEDS: TIOTROPIUM INHALER INH SCH (08:53)
[2016-03-30] MEDS: BUDESONIDE NEBS 0.5 MG/2 ML VIAL NEB SCH ×2 (08:55→20:25)
[2016-03-30] MEDS: ASCORBIC ACID 500 MG TAB PO SCH (09:36)
[2016-03-30] MEDS: GABAPENTIN 100 MG CAP PO SCH ×2 (09:36→21:41)
[2016-03-30] MEDS: APIXABAN 2.5 MG TAB PO SCH ×2 (09:36→21:40)
[2016-03-30] MEDS: BIFIDOBACTERIUM INFANTIS 4 MG CAP PO SCH (09:36)
[2016-03-30] MEDS: AMIODARONE HCL 200 MG TAB PO SCH (09:36)
[2016-03-30] MEDS: FUROSEMIDE 40 MG TAB PO SCH ×2 (09:37→17:27)
[2016-03-30] MEDS: ASPIRIN EC 81 MG TAB PO SCH (09:37)
[2016-03-30] MEDS: LORazepam 0.5 MG TAB PO PRN ×2 (09:37→20:14)
[2016-03-30] MEDS: predniSONE 10 MG TAB PO SCH ×2 (09:37→21:40)
[2016-03-30] MEDS: DOCUSATE SODIUM 100 MG CAP PO SCH ×2 (09:37→09:43)
[2016-03-30] MEDS: NICOTINE PATCH 21 MG TD SCH (09:38)
[2016-03-30] MEDS: METOPROLOL SUCCINATE XL 100 MG TAB PO SCH (09:38)
[2016-03-30] MEDS: ALBUTEROL SULFATE 2.5 MG/3 ML VIAL NEB PRN (20:25)
[2016-03-30] MEDS: MONTELUKAST SODIUM 10 MG TAB PO SCH (21:41)
[2016-03-31] MEDS: LEVOTHYROXINE SODIUM 0.1 MG TAB PO SCH (05:58)
[2016-03-31] MEDS: PANTOPRAZOLE SODIUM TAB 40 MG PO SCH (05:58)
[2016-03-31] MEDS: POTASSIUM CHLORIDE 10 MEQ TAB PO SCH (08:08)
--- NOTE | 2016-03-31 08:30 | PN ---
SUPERVISING PHYSICIAN: Nick Valiente MD DATE: 03/30/16 SUBJECTIVE: The patient is sitting up in her bed. She has walked in the hallways multiple times today. She says she is feeling much, much better. She is wearing her oxygen, but her shortness of breath is only minimal. She denies any chest pain, abdominal pain, nausea or vomiting. OBJECTIVE: VITAL SIGNS: Afebrile. Heart rate 66. Blood pressure 104/60. Respiratory rate 20. O2 saturation 97%. LUNGS: Somewhat distant breath sounds throughout, but mostly clear to auscultation. CARDIAC: Regular rate and rhythm. ABDOMEN: Soft, nontender, nondistended. Bowel sounds are positive. NEUROLOGIC: Awake, alert and oriented times three. LABORATORY: There are no labs or films to report today. ASSESSMENT: 1. Exacerbation of chronic obstructive pulmonary disease recently discharged from [facility] to include acute respiratory failure requiring BiPAP and being transferred to [facility] for Swing Bed admission for strengthening and conditioning. 2. Weakness from previous hospital admission and requiring strengthening and conditioning as a Swing Bed admission. 3. Chronic tobacco abuse. 4. Hypertension. 5. Anxiety disorder. 6. Polycythemia, most likely secondary to chronic obstructive pulmonary disease. 7. Hypothyroidism. 8. Leukocytosis, most likely due to chronic high dose steroid use. 9. Right pleural effusion with right basilar airspace opacity on radiographic studies with the patient continuing to show good clinical improvement. PLAN: The patient is progressing well with her strengthening and condition in Swing Bed. Hopefully, she can be discharged by Sunday. She has [facility] that we will need to contact to get her set up after discharge. She will also need a prescription for the gabapentin, amiodarone and Eliquis upon discharge as those are new prescriptions from [facility]. I spoke to Amy at Dr. Valiente' office and we are in the process of getting Todd on her Part B of Medicare. She will most likely need to go home on chronic steroid dose. She also would like to discontinue her Daliresp if at all possible as it is very expensive. I will let her discuss that with Dr. Valiente. She has not had a cigarette since she was admitted to the hospital prior to her transfer from [facility] to [facility] and I have encouraged that she continue her smoking cessation. Otherwise, we will continue to monitor the patient closely and followup as needed. Dr. Valiente is the collaborating physician and available for consultation. #[id number] [facility]
[2016-03-31] MEDS: ALBUTEROL SULFATE 2.5 MG/3 ML VIAL NEB PRN ×2 (08:46→20:35)
[2016-03-31] MEDS: TIOTROPIUM INHALER INH SCH (08:46)
[2016-03-31] MEDS: BUDESONIDE NEBS 0.5 MG/2 ML VIAL NEB SCH ×3 (08:46→20:35)
[2016-03-31] MEDS: FLUTICASONE/SALMETEROL 250/50 14 PUFF/17 GM INH INH SCH ×2 (08:46→20:35)
[2016-03-31] MEDS: AMIODARONE HCL 200 MG TAB PO SCH (08:57)
[2016-03-31] MEDS: predniSONE 10 MG TAB PO SCH ×2 (08:58→21:18)
[2016-03-31] MEDS: ASCORBIC ACID 500 MG TAB PO SCH (08:58)
[2016-03-31] MEDS: BIFIDOBACTERIUM INFANTIS 4 MG CAP PO SCH (08:58)
[2016-03-31] MEDS: FUROSEMIDE 40 MG TAB PO SCH ×2 (08:59→17:39)
[2016-03-31] MEDS: ASPIRIN EC 81 MG TAB PO SCH (08:59)
[2016-03-31] MEDS: NICOTINE PATCH 21 MG TD SCH (09:00)
[2016-03-31] MEDS: DOCUSATE SODIUM 100 MG CAP PO SCH (09:00)
[2016-03-31] MEDS: METOPROLOL SUCCINATE XL 100 MG TAB PO SCH (09:02)
[2016-03-31] MEDS: GABAPENTIN 100 MG CAP PO SCH ×2 (09:02→21:18)
[2016-03-31] MEDS: APIXABAN 2.5 MG TAB PO SCH ×2 (09:09→21:18)
[2016-03-31] MEDS: LORazepam 0.5 MG TAB PO PRN ×3 (09:16→20:21)
--- NOTE | 2016-03-31 19:42 | PN ---
DATE: 03/31/16 SUPERVISING PHYSICIAN: Suleman Boles M.D. SUBJECTIVE: The patient continues to do well. She is progressing in her physical therapy. Anticipate hopefully discharging this coming Sunday. She remains afebrile. She has no increasing shortness of breath. OBJECTIVE: VITAL SIGNS: Temperature 97.9, pulse 65, blood pressure 131/64, respirations 18, O2 sat 97% on 2 liters nasal cannula at rest. I's and O's are well balanced. CHEST: Clear to auscultation. No obvious rhonchi or wheezing. HEART: Regular rate and rhythm. ABDOMEN: Soft, non-tender. Positive bowel sounds. EXTREMITIES: Continue to show 1+ bilateral lower extremity edema but there is no clubbing or cyanosis. NEUROLOGIC: She is alert and oriented times three. There are no repeat laboratory or radiographic studies today. ASSESSMENT: 1. Exacerbation of chronic obstructive pulmonary disease recently discharged from [facility] to include acute respiratory failure with BiPAP and being transferred to [facility] for Swing Bed admission for strengthening and conditioning. 2. Weakness from previous hospital admission and requiring strengthening and conditioning to Swing Bed admission. 3. Chronic tobacco abuse. 4. Hypertension. 5. Anxiety disorder. 6. Polycythemia most likely secondary to chronic obstructive pulmonary disease. 7. Hypothyroidism. 8. Leukocytosis most likely due to chronic high dose steroid use. 9. Right pleural effusion with a right basilar airspace opacity on radiographic studies. The patient continues to show good clinical improvement. PLAN: Will continue with physical therapy, strengthening and conditioning in Swing Bed. Anticipate discharge possibly Sunday, again at the discretion of Physical Therapy. She does have [facility] that will continue to follow the patient at time of discharge. When she is discharged, she will need new prescriptions that include one for Gabapentin, Amiodarone and Eliquis. Dr. Valiente continues to work on setting the patient up on Brovana on her Part B Medicare. She will need to go home on chronic steroids. Again, she asks if she can discontinue her Daliresp due to the cough, however this will need to be followed up in outpatient setting clinic with Dr. Valiente. She is again encouraged to stop smoking. Until discharge, will follow the patient closely and treat appropriately. #[id number] [facility]
[2016-03-31] MEDS: MONTELUKAST SODIUM 10 MG TAB PO SCH (21:18)
[2016-04-01] MEDS: PANTOPRAZOLE SODIUM TAB 40 MG PO SCH (05:58)
[2016-04-01] MEDS: LEVOTHYROXINE SODIUM 0.1 MG TAB PO SCH (05:58)
[2016-04-01] MEDS: POTASSIUM CHLORIDE 10 MEQ TAB PO SCH (07:54)
[2016-04-01] MEDS: ALBUTEROL SULFATE 2.5 MG/3 ML VIAL NEB PRN ×2 (08:50→20:20)
[2016-04-01] MEDS: BUDESONIDE NEBS 0.5 MG/2 ML VIAL NEB SCH ×3 (08:50→20:20)
[2016-04-01] MEDS: FLUTICASONE/SALMETEROL 250/50 14 PUFF/17 GM INH INH SCH ×2 (08:50→20:20)
[2016-04-01] MEDS: TIOTROPIUM INHALER INH SCH (08:50)
[2016-04-01] MEDS: AMIODARONE HCL 200 MG TAB PO SCH (09:19)
[2016-04-01] MEDS: BIFIDOBACTERIUM INFANTIS 4 MG CAP PO SCH (09:19)
[2016-04-01] MEDS: GABAPENTIN 100 MG CAP PO SCH ×2 (09:19→20:36)
[2016-04-01] MEDS: ASCORBIC ACID 500 MG TAB PO SCH (09:19)
[2016-04-01] MEDS: predniSONE 10 MG TAB PO SCH ×2 (09:19→20:36)
[2016-04-01] MEDS: METOPROLOL SUCCINATE XL 100 MG TAB PO SCH (09:20)
[2016-04-01] MEDS: FUROSEMIDE 40 MG TAB PO SCH ×2 (09:20→16:52)
[2016-04-01] MEDS: ASPIRIN EC 81 MG TAB PO SCH (09:20)
[2016-04-01] MEDS: APIXABAN 2.5 MG TAB PO SCH ×2 (09:20→20:36)
[2016-04-01] MEDS: LORazepam 0.5 MG TAB PO PRN ×3 (09:20→20:35)
[2016-04-01] MEDS: NICOTINE PATCH 21 MG TD SCH (09:20)
[2016-04-01] MEDS: DOCUSATE SODIUM 100 MG CAP PO SCH (09:20)
[2016-04-01] MEDS: MONTELUKAST SODIUM 10 MG TAB PO SCH (20:36)
[2016-04-02] MEDS: PANTOPRAZOLE SODIUM TAB 40 MG PO SCH (06:18)
[2016-04-02] MEDS: LEVOTHYROXINE SODIUM 0.1 MG TAB PO SCH (06:18)
[2016-04-02] MEDS: LORazepam 0.5 MG TAB PO PRN ×2 (07:58→19:18)
[2016-04-02] MEDS: POTASSIUM CHLORIDE 10 MEQ TAB PO SCH (07:58)
[2016-04-02] MEDS: BIFIDOBACTERIUM INFANTIS 4 MG CAP PO SCH (09:10)
[2016-04-02] MEDS: ASPIRIN EC 81 MG TAB PO SCH (09:10)
[2016-04-02] MEDS: METOPROLOL SUCCINATE XL 100 MG TAB PO SCH (09:10)
[2016-04-02] MEDS: ASCORBIC ACID 500 MG TAB PO SCH (09:10)
[2016-04-02] MEDS: NICOTINE PATCH 21 MG TD SCH (09:10)
[2016-04-02] MEDS: AMIODARONE HCL 200 MG TAB PO SCH (09:10)
[2016-04-02] MEDS: APIXABAN 2.5 MG TAB PO SCH ×2 (09:10→20:41)
[2016-04-02] MEDS: FUROSEMIDE 40 MG TAB PO SCH ×2 (09:10→17:15)
[2016-04-02] MEDS: GABAPENTIN 100 MG CAP PO SCH ×2 (09:10→20:41)
[2016-04-02] MEDS: predniSONE 10 MG TAB PO SCH ×2 (09:10→20:41)
[2016-04-02] MEDS: DOCUSATE SODIUM 100 MG CAP PO SCH (09:11)
[2016-04-02] MEDS: BUDESONIDE NEBS 0.5 MG/2 ML VIAL NEB SCH ×3 (09:18→20:30)
[2016-04-02] MEDS: FLUTICASONE/SALMETEROL 250/50 14 PUFF/17 GM INH INH SCH ×2 (09:18→20:30)
[2016-04-02] MEDS: TIOTROPIUM INHALER INH SCH (09:19)
--- NOTE | 2016-04-02 14:54 | PN ---
DATE: 04/02/16 SUPERVISING PHYSICIAN: Nick Valiente M.D. SUBJECTIVE: The patient is doing well. She continues to progress with her physical therapy. She remains afebrile and has no increase in shortness of breath. OBJECTIVE: VITAL SIGNS: Temperature 97.5, pulse 62, blood pressure 110/64, respirations 18, O2 sat 97% nasal cannula at 2 liters at rest. I's and O's show a good balance. She has had a couple of bowel movements. CHEST: Lungs have good aeration with just some mild inspiratory wheezing that resolves with breathing treatments. There are no rhonchi or rales noted. HEART: Slightly irregular rate and rhythm. ABDOMEN: Soft, non-tender. Positive bowel sounds. EXTREMITIES: 1+ edema to bilateral lower extremities. NEUROLOGIC: She is alert and oriented times three. ASSESSMENT: 1. Exacerbation of chronic obstructive pulmonary disease recently discharged from [facility] to include acute respiratory failure with BiPAP and being transferred to [facility] for Swing Bed admission for strengthening and conditioning. 2. Weakness from previous hospitalization requiring strengthening and conditioning in Swing Bed. 3. Chronic tobacco abuse. 4. Hypertension. 5. Anxiety disorder. 6. Polycythemia most likely secondary to chronic obstructive pulmonary disease. 7. Hypothyroidism. 8. Leukocytosis likely secondary to chronic high dose steroid use. 9. Right pleural effusion with right basilar airspace opacity on radiographic studies, continues to show good clinical improvement. Will need continued monitoring. 10. Lower extremity edema likely secondary to new medications to include Neurontin and Amiodarone. PLAN: Will continue with Swing Bed admission through physical therapy and rehabilitation with anticipation of discharge possibly on Sunday. She does have [facility] which will continue at time of discharge. When she is discharged, she will need new prescriptions that include Gabapentin, Amiodarone and Eliquis. Again, Dr. Valiente is working to secure Brovana for the patient on her Medicare Part B. She will continue home on chronic steroids. Until discharge, will continue to monitor closely and treat appropriately. #[id number] [facility]
[2016-04-02] MEDS: ALBUTEROL SULFATE 2.5 MG/3 ML VIAL NEB PRN (20:30)
[2016-04-02] MEDS: MONTELUKAST SODIUM 10 MG TAB PO SCH (20:41)
[2016-04-03] MEDS: LEVOTHYROXINE SODIUM 0.1 MG TAB PO SCH (06:26)
[2016-04-03] MEDS: PANTOPRAZOLE SODIUM TAB 40 MG PO SCH (06:26)
[2016-04-03] MEDS: ALENDRONATE SODIUM TAB 70 MG TAB PO SCH (06:30)
[2016-04-03 06:35] VITALS: BP 122/71; TEMP 98; O2SAT 97
[2016-04-03] MEDS: POTASSIUM CHLORIDE 10 MEQ TAB PO SCH (07:23)
[2016-04-03] MEDS: BUDESONIDE NEBS 0.5 MG/2 ML VIAL NEB SCH ×2 (09:00→13:45)
[2016-04-03] MEDS: ALBUTEROL SULFATE 2.5 MG/3 ML VIAL NEB PRN ×2 (09:00→13:25)
[2016-04-03] MEDS: FLUTICASONE/SALMETEROL 250/50 14 PUFF/17 GM INH INH SCH (09:12)
[2016-04-03] MEDS: TIOTROPIUM INHALER INH SCH (09:25)
[2016-04-03] MEDS: DOCUSATE SODIUM 100 MG CAP PO SCH (09:59)
[2016-04-03] MEDS: FUROSEMIDE 40 MG TAB PO SCH (09:59)
[2016-04-03] MEDS: AMIODARONE HCL 200 MG TAB PO SCH (09:59)
[2016-04-03] MEDS: APIXABAN 2.5 MG TAB PO SCH (09:59)
[2016-04-03] MEDS: predniSONE 10 MG TAB PO SCH (10:00)
[2016-04-03] MEDS: ASCORBIC ACID 500 MG TAB PO SCH (10:00)
[2016-04-03] MEDS: GABAPENTIN 100 MG CAP PO SCH (10:00)
[2016-04-03] MEDS: NICOTINE PATCH 21 MG TD SCH (10:00)
[2016-04-03] MEDS: METOPROLOL SUCCINATE XL 100 MG TAB PO SCH (10:01)
[2016-04-03] MEDS: ASPIRIN EC 81 MG TAB PO SCH (10:01)
[2016-04-03] MEDS: BIFIDOBACTERIUM INFANTIS 4 MG CAP PO SCH (10:01)
[2016-04-03] MEDS: LORazepam 0.5 MG TAB PO PRN (10:06)
--- NOTE | 2016-04-04 10:21 | DS ---
SUPERVISING PHYSICIAN: Nick Valiente MD DISCHARGE DIAGNOSIS: 1. Exacerbation of chronic obstructive pulmonary disease having been recently discharged from [facility] in [place] with respiratory failure with BiPAP having been transferred to [facility] for Swing Bed admission for strengthening and reconditioning. 2. Weakness from previous hospitalization requiring strengthening and conditioning on Swing. 3. Chronic tobacco abuse 4. Hypertension. 5 Anxiety disorder. 6. Polycythemia, likely secondary to chronic obstructive pulmonary disease. 7 Hypothyroidism. 8. Leukocytosis secondary to chronic steroid usage. 9. Right pleural effusion, small, with a basilar airspace opacity on radiographic studies with the patient showing clinical improvement and no complications. 10. Lower extremity edema, most likely secondary to new medications to include Neurontin and amiodarone versus early right sided heart failure with the patient showing atrial fibrillation, new onset, at [facility]. 11. Atrial fibrillation with controlled ventricular rate with the patient being on Eliquis. HISTORY OF PRESENT ILLNESS: Ms. Rodriguez is a 75 year-old, female that was transferred from [facility] to [facility] after a lengthy stay in the hospital for an exacerbation of chronic obstructive pulmonary disease. She was initially admitted to the Medical/Surgical Floor at [facility] on 03/15/16, during which time she did experience an acute exacerbation requiring transfer to higher level of care. She was discharged from [facility] on 03/27/16 and transferred to [facility] for Swing Bed on the same date for strengthening and reconditioning. LABORATORY: Laboratories on admission to [facility] showed an elevated white count of 21.9 with hemoglobin 15.0, hematocrit 48.7, and platelet count 427,000 with left shift showing on differential. However, the patient has been on multiple high dose steroids for days. Chemistries showed normal electrolytes with potassium 4.6, BUN slightly elevated at 23, creatinine normal at 0.78, glucose 126. Urine on admission to [facility] Bed showed just a moderate amount of blood on dipstick, otherwise within normal limits. Microscopic revealed 20 to 30 RBCs, rare bacteria, but no epithelial cells. MICROBIOLOGY: No specimens submitted. RADIOLOGY: Chest x-ray on admission to Swing Bed per radiology interpretation showed right basilar airspace opacity with right pleural effusion. No other radiographic studies were performed during Swing Bed admission. HOSPITAL COURSE: The patient was discharged on 01/30/17 after being admitted to Swing Bed for rehabilitation and reconditioning. It was felt by physical therapy that the patient had progressed well enough to go home to continue with physical therapy at home through [facility]. PLAN: She was instructed to followup with Dr. Valiente as scheduled and resume all other medications as instructed. She was to increase activity as per physical therapist. She was to have home health provided by [facility]. She was instructed should she have any worsening of her symptoms to return to the hospital. At time of discharge, new prescriptions included: 1. Amiodarone 200 mg daily, #30. 2. Brovana 15 mcg twice daily, #60. 3. Eliquis 5 mg twice daily, #60. 4. Neurontin 100 mg twice daily, #60. She was discharged in stable condition and instructed to resume her normal diet and return to the hospital should she have failure to improve her symptoms. #[id number] [facility]
== END 2016-04-03 16:37 | disposition home or self-care (01) | DRG 948 ==
LOC: MS 15:25
PROVIDERS: ADMIT Nurse Practitioner Family; ATTEND Nurse Practitioner Family
DX: R53.1 Weakness (principal); J90 Pleural effusion, not elsewhere classified; J44.9 Chronic obstructive pulmonary disease, unspecified; I10 Essential (primary) hypertension; F41.9 Anxiety disorder, unspecified; D75.1 Secondary polycythemia; E03.9 Hypothyroidism, unspecified; D72.829 Elevated white blood cell count, unspecified; T38.0X5A Adverse effect of glucocorticoids and synthetic analogues, initial encounter; R60.0 Localized edema; T42.6X5A Adverse effect of other antiepileptic and sedative-hypnotic drugs, initial encounter; I48.91 Unspecified atrial fibrillation; E78.5 Hyperlipidemia, unspecified; I73.9 Peripheral vascular disease, unspecified; E53.8 Deficiency of other specified B group vitamins; M81.0 Age-related osteoporosis without current pathological fracture; F17.210 Nicotine dependence, cigarettes, uncomplicated; Y92.239 Unspecified place in hospital as the place of occurrence of the external cause; Z99.81 Dependence on supplemental oxygen; Z79.01 Long term (current) use of anticoagulants; Z79.52 Long term (current) use of systemic steroids; Z79.82 Long term (current) use of aspirin; Z79.899 Other long term (current) drug therapy; Z88.0 Allergy status to penicillin; Z88.2 Allergy status to sulfonamides

== ENCOUNTER 2016-04-12 14:56 | Emergency (ER) | payer MEDICARE, OTHER ==
--- NOTE | 2016-04-12 15:36 | ED.PDOC ---
History of Present Illness - General Chief Complaint: Cardiovascular Problem Stated Complaint: sent by home health for eval Time Seen by Provider: 04/12/16 15:08 Source: patient Exam Limitations: no limitations - History of Present Illness Initial Comments: Ms. Linda Rodriguez 75 y/o female sent over to er with auscultatory findings rales both lungs concern about fluid in lungs.She has long standing history of copd on o2 dependent;was hospitalized recently for pneumonia and exacerbation of copd.Also treated for flu and strep. Timing/Duration: 4-6 hours Allergies/Adverse Reactions: Allergies Penicillins Allergy (Verified 04/12/16 15:25) Rash Sulfa Drugs Allergy (Verified 04/12/16 15:25) Other Causes swelling to face Home Medications: Ambulatory Orders Albuterol Sulfate Nebs [Proventil Nebs] 1 ea INH Q6H PRN 05/03/15 Alendronate Sodium [Fosamax] 70 mg PO MO 05/03/15 Aspirin Buffered (Matt Carb-Mag [Bufferin Low Dose 81 mg] 81 mg PO BEDTIME Fluticasone/Salmeterol 250/50 [Advair 250/50 Diskus] 1 puff INH BID #0 Levothyroxine Sodium [Synthroid] 0.1 mg PO ACBK 05/03/15 Lorazepam [Ativan] 1 mg PO TID PRN 05/03/15 Metoprolol Succinate [Metoprolol Succinate ER] 100 mg PO DAILY 05/03/15 Montelukast Sodium [Singulair] 10 mg PO BEDTIME 05/03/15 Ascorbic Acid [Vitamin C] 1,000 mg PO DAILY 12/20/15 Furosemide [Lasix] 20 mg PO BID 12/20/15 Tiotropium [place] Monohydrate [Spiriva Handihaler] 1 puff IN DAILY 12/20/15 Nicotine Patch 21 mg [Habitrol Patch 21mg] 1 ea TD DAILY #14 patch 12/25/15 Apixaban [Eliquis] 5 mg PO BID 03/27/16 Potassium Chloride [K-Tab] 20 meq PO DAILY 03/27/16 Amiodarone HCl 200 mg PO DAILY #30 tab 04/03/16 Arformoterol Tartrate [Brovana] 15 mcg IN BID #60 ml 04/03/16 Budesonide Nebs [Pulmicort Respules] 0.5 mg NEB TID #60 vial 04/03/16 Gabapentin [Neurontin] 100 mg PO BID #60 cap 04/03/16 predniSONE [Prednisone] 10 mg PO BID #30 tab 04/03/16 Cefdinir 300 mg PO BID 04/12/16 Review of Systems - Review of Systems Constitutional: States: no symptoms reported Respiratory: States: see HPI Cardiology: States: no symptoms reported Gastrointestinal/Abdominal: States: no symptoms reported Genitourinary: States: no symptoms reported Musculoskeletal: States: no symptoms reported Skin: States: no symptoms reported Neurological: States: no symptoms reported Endocrine: States: no symptoms reported Hematologic/Lymphatic: States: no symptoms reported Past Medical History (General) - Patient Medical History Hx Seizures: No Hx Stroke: No Hx Dementia: No Hx Asthma: Yes Hx of COPD: Yes Hx Cardiac Disorders: Yes Hx Congestive Heart Failure: Yes Hx Pacemaker: No Hx Hypertension: Yes Hx Thyroid Disease: Yes Hx Diabetes: No Hx Gastroesophageal Reflux: Yes Hx Renal Disease: No Hx Cancer: No Hx of HIV: No Hx Hepatitis C: No Hx MRSA: No Surgical History: other - btl - Vaccination History Hx Tetanus, Diphtheria Vaccination: Yes Hx Influenza Vaccination: Yes - 2015 Hx Pneumococcal Vaccination: Yes - Social History Hx Tobacco Use: Yes - 04/2015 Hx Chewing Tobacco Use: No Hx Alcohol Use: No Hx Substance Use: No Hx Substance Use Treatment: No Hx Depression: No Hx Physical Abuse: No Hx Emotional Abuse: No Hx Suspected Abuse: No - Female History Patient : No Family Medical History - Family History Mother Family History: No Known Name: Belle Villeal Living Status: Age at (years of age): 85 Hx Family Asthma: No Hx Family Congestive Heart Failure: No Hx Family Hypertension: No Hx Family Stroke: No Hx Cardiac Disease: No Hx Family Diabetes: No Hx Family Cancer: No Hx Family;Other: Bowel obstruction Father Name: Sreedhar Villela Living Status: Age at (years of age): 79 Cause of : Heart Attack Hx Family Congestive Heart Failure: Yes Hx Family Hypertension: Yes Hx Cardiac Disease: Yes Brother Living Status: Age at (years of age): 90 Hx Family Asthma: Yes - emphysema Hx Family Cancer: Yes - Prostate Physical Exam - Physical Exam General Appearance: Alert, Comfortable, No apparent distress Eye Exam: bilateral normal Ears, Nose, Throat: hearing grossly normal, normal ENT inspection, normal pharynx Neck: non-tender, full range of motion, supple Respiratory: rales - bases, wheezing - milod Cardiovascular/Chest: normal peripheral pulses, regular rate, rhythm, no edema, no gallop, no JVD, no murmur Peripheral Pulses: radial,right: 2+, radial,left: 2+ Gastrointestinal/Abdominal: normal bowel sounds, non tender, soft, no organomegaly, no pulsatile mass Back Exam: normal inspection, no CVA tenderness Extremity: normal range of motion, non-tender, normal inspection, no pedal edema , no calf tenderness Neurologic: no motor/sensory deficits, alert, normal mood/affect, oriented x 3 Skin Exam: warm/dry, cyanosis Lymphatic: no adenopathy Progress - Results/Orders Results/Orders: 04/12/16 15:39 IV Care:Saline Lock per Protoc QSHIFT 04/12/16 15:45 EKG STAT Laboratory Results WBC 12.4 K/mm3 (4.8-10.8) H 04/12/16 15:50 RBC 5.52 M/mm3 (4.20-5.40) H 04/12/16 15:50 Hgb 14.4 gm/dL (12.0-16.0) 04/12/16 15:50 Hct 46.2 % (36.0-47.0) 04/12/16 15:50 MCV 83.6 fl (81.0-99.0) 04/12/16 15:50 MCH 26.0 pg (27.0-31.0) L 04/12/16 15:50 MCHC 31.1 g/dL (33.0-37.0) L 04/12/16 15:50 RDW 19.3 % (11.5-14.5) H 04/12/16 15:50 Plt Count 481 K/mm3 (130-400) H 04/12/16 15:50 MPV 7.3 fl (7.40-10.4) L 04/12/16 15:50 Absolute Neuts (auto) 11.10 K/uL (1.8-6.8) H 04/12/16 15:50 Absolute Lymphs (auto) 0.50 K/uL (1.0-3.4) L 04/12/16 15:50 Absolute Monos (auto) 0.80 K/uL (0.2-0.8) 04/12/16 15:50 Absolute Eos (auto) 0.00 K/uL (0.0-0.4) 04/12/16 15:50 Absolute Basos (auto) 0.00 K/uL (0.0-0.1) 04/12/16 15:50 Neutrophils % 89.3 % (42.0-78.0) H 04/12/16 15:50 Lymphocytes % 4.3 % (20.0-50.0) L 04/12/16 15:50 Monocytes % 6.1 % (2.0-9.0) 04/12/16 15:50 Eosinophils % 0.2 % (1.0-5.0) L 04/12/16 15:50 Basophils % 0.1 % (0.0-2.0) 04/12/16 15:50 Sodium 140 mmol/L (135-145) 04/12/16 15:50 Potassium 4.1 mmol/L (3.6-5.0) 04/12/16 15:50 Chloride 91 mmol/L (101-111) L 04/12/16 15:50 Carbon Dioxide 41 mmol/L (21-31) H 04/12/16 15:50 Anion Gap 12.1 (12-18) 04/12/16 15:50 BUN 30 mg/dL (7-18) H 04/12/16 15:50 Creatinine 0.93 mg/dL (0.6-1.3) 04/12/16 15:50 BUN/Creatinine Ratio 32.3 (10-20) H 04/12/16 15:50 Random Glucose 178 mg/dL (70-105) H 04/12/16 15:50 Serum Osmolality 290.0 mOsm/L (275-295) 04/12/16 15:50 Calcium 8.9 mg/dL (8.4-10.2) 04/12/16 15:50 Total Bilirubin 0.7 mg/dL (0.2-1.0) 04/12/16 15:50 AST 17 IU/L (10-42) 04/12/16 15:50 ALT 14 IU/L (10-60) 04/12/16 15:50 Alkaline Phosphatase 54 IU/L (42-121) 04/12/16 15:50 B-Natriuretic Peptide 106.0 pg/ml (0-100) H 04/12/16 15:50 Serum Total Protein 6.5 gm/dL (6.4-8.2) 04/12/16 15:50 Albumin 3.6 g/dl (3.2-5.5) 04/12/16 15:50 Globulin 2.9 gm/dL (2.3-3.5) 04/12/16 15:50 Albumin/Globulin Ratio 1.2 (1.1-1.9) 04/12/16 15:50 04/12/16 04/12/16 15:08 16:41 Temperature 99.1 F Pulse Rate 72 Pulse Rate [ 76 Left Radial] Respiratory 32 H 24 Rate Blood Pressure 144/68 [Left Arm] O2 Sat by Pulse 93 L 95 Oximetry - EKG/XRAY/CT XRAY: chest - ILD with improved aeration Departure - Departure Clinical Impression: COPD exacerbation, Interstitial emphysema of lung Time of Disposition: 17:50 Disposition: Discharge to Home or Self Care Condition: Good Departure Forms: ED Discharge - Pt. Copy, Patient Portal Self Enrollment Instructions: DI for Chronic Obstructive Pulmonary Disease Home Medications: Ambulatory Orders Albuterol Sulfate Nebs [Proventil Nebs] 1 ea INH Q6H PRN 05/03/15 Alendronate Sodium [Fosamax] 70 mg PO MO 05/03/15 Aspirin Buffered (Matt Carb-Mag [Bufferin Low Dose 81 mg] 81 mg PO BEDTIME Fluticasone/Salmeterol 250/50 [Advair 250/50 Diskus] 1 puff INH BID #0 Levothyroxine Sodium [Synthroid] 0.1 mg PO ACBK 05/03/15 Lorazepam [Ativan] 1 mg PO TID PRN 05/03/15 Metoprolol Succinate [Metoprolol Succinate ER] 100 mg PO DAILY 05/03/15 Montelukast Sodium [Singulair] 10 mg PO BEDTIME 05/03/15 Ascorbic Acid [Vitamin C] 1,000 mg PO DAILY 12/20/15 Furosemide [Lasix] 20 mg PO BID 12/20/15 Tiotropium [place] Monohydrate [Spiriva Handihaler] 1 puff IN DAILY 12/20/15 Nicotine Patch 21 mg [Habitrol Patch 21mg] 1 ea TD DAILY #14 patch 12/25/15 Apixaban [Eliquis] 5 mg PO BID 03/27/16 Potassium Chloride [K-Tab] 20 meq PO DAILY 03/27/16 Amiodarone HCl 200 mg PO DAILY #30 tab 04/03/16 Arformoterol Tartrate [Brovana] 15 mcg IN BID #60 ml 04/03/16 Budesonide Nebs [Pulmicort Respules] 0.5 mg NEB TID #60 vial 04/03/16 Gabapentin [Neurontin] 100 mg PO BID #60 cap 04/03/16 predniSONE [Prednisone] 10 mg PO BID #30 tab 04/03/16 Cefdinir 300 mg PO BID 04/12/16 Additional Instructions: CONTINUE WITH ALL HOME MEDICATIONS;RETURN TO EMERGENCY ROOM NEEDED
--- NOTE | 2016-04-12 16:18 | RAD ---
EXAM DESCRIPTION: XR CHEST 2 VIEWS CLINICAL HISTORY: rales COMPARISON: 28 March 2016. TECHNIQUE: PA/lateral FINDINGS: Bilateral diffuse interstitial lung disease is observed. I suspect a large portion of what is seen is chronic in nature. There has been interval improvement in aeration the chest since the previous exam. The heart is within the range of normal. No pleural fluid is seen. IMPRESSION: Diffuse chronic interstitial lung disease. An interval improvement in aeration the chest is noted. Electronically signed by: Emerson Stafford MD 04/12/2016 16:17
[2016-04-12] MEDS ORDERED: ALBUTEROL SULFATE 2.5 MG/3 ML VIAL NEB ONE ×2 (16:38→16:41)
[2016-04-12 18:33] VITALS: BP 142/67; TEMP 98.8; O2SAT 96
== END 2016-04-12 18:00 | disposition home or self-care (01) ==
LOC: ER 14:56
DX: J44.1 Chronic obstructive pulmonary disease with (acute) exacerbation (principal); J98.2 Interstitial emphysema; I11.0 Hypertensive heart disease with heart failure; I50.9 Heart failure, unspecified; E07.9 Disorder of thyroid, unspecified; Z99.81 Dependence on supplemental oxygen; Z88.0 Allergy status to penicillin; Z88.2 Allergy status to sulfonamides; Z79.82 Long term (current) use of aspirin; Z79.899 Other long term (current) drug therapy; Z87.891 Personal history of nicotine dependence
CPT/HCPCS: 36415; 71020; 80053; 83880; 85025; 93005; 94640; J7611

== ENCOUNTER 2016-05-05 19:10 | Inpatient (IN) | payer MEDICARE, OTHER ==
[2016-05-05] MEDS ORDERED: ACETAMINOPHEN 500 MG TAB PO PRN (20:11)
[2016-05-05] MEDS ORDERED: SODIUM PHOS/BIPHOS ENEMA ADULT 133 ML BTTL PR PRN (20:11)
[2016-05-05] MEDS ORDERED: MAGNESIUM HYDROXIDE 30 ML UD PO PRN (20:11)
[2016-05-05] MEDS: ALBUTEROL SULFATE 2.5 MG/3 ML VIAL NEB SCH (20:44)
[2016-05-05] MEDS: HYDROcodone 5MG/APAP 325MG 1 EA TAB PO PRN (21:42)
[2016-05-06] MEDS: GABAPENTIN 100 MG CAP PO SCH ×3 (00:58→21:30)
[2016-05-06] MEDS: ALBUTEROL SULFATE 2.5 MG/3 ML VIAL NEB PRN (01:15)
[2016-05-06] MEDS ORDERED: LORazepam 1 MG TAB ONE (02:10)
[2016-05-06] MEDS: HYDROcodone 5MG/APAP 325MG 1 EA TAB PO PRN ×3 (02:11→21:40)
[2016-05-06] MEDS: LORazepam 0.5 MG TAB PO PRN ×2 (02:14→21:40)
[2016-05-06] MEDS ORDERED: APIXABAN 2.5 MG TAB PO ONE (05:49)
[2016-05-06] MEDS ORDERED: METOPROLOL SUCCINATE XL 100 MG TAB PO ONE (05:49)
[2016-05-06] MEDS: LEVOTHYROXINE SODIUM 0.1 MG TAB PO SCH (06:38)
[2016-05-06] MEDS: NON-FORMULARY MEDICATION 1 EA MIS (Arformoterol Tartrate [Brovana] 15 MCG) IN SCH ×2 (07:35→20:10)
[2016-05-06] MEDS: TIOTROPIUM INHALER INH SCH (07:35)
[2016-05-06] MEDS: ALBUTEROL SULFATE 2.5 MG/3 ML VIAL NEB SCH ×4 (07:35→20:10)
[2016-05-06] MEDS ORDERED: DOCUSATE SODIUM 100 MG CAP PO SCH (09:00)
[2016-05-06] MEDS: DOCUSATE SODIUM 100 MG CAP PO SCH ×2 (09:57→21:30)
[2016-05-06] MEDS: FUROSEMIDE 40 MG TAB PO SCH ×2 (09:57→21:30)
[2016-05-06] MEDS: predniSONE 10 MG TAB PO SCH (09:57)
[2016-05-06] MEDS: METOPROLOL SUCCINATE XL 100 MG TAB PO SCH (09:57)
[2016-05-06] MEDS: AMIODARONE HCL 200 MG TAB PO SCH (09:57)
[2016-05-06] MEDS: APIXABAN 2.5 MG TAB PO SCH ×2 (09:57→21:30)
[2016-05-06] MEDS: MAGNESIUM HYDROXIDE 30 ML UD PO SCH ×2 (10:23→15:18)
[2016-05-06] MEDS: NON-FORMULARY MEDICATION 1 EA MIS (Roflumilast [Daliresp] 500 MCG) PO SCH (11:12)
--- NOTE | 2016-05-06 11:20 | HP ---
SUPERVISING PHYSICIAN: Nick Valiente M.D. HISTORY OF PRESENT ILLNESS: This is a 75 year-old female patient who broke her right hip tripping over her oxygen tubing several weeks ago. She was admitted to the [facility] and this past Sunday had right hip surgery per Dr. Angela, orthopedic surgeon at the [facility]. She was transferred today for strengthening and conditioning, and Swing Bed admission. PAST MEDICAL HISTORY: 1. Chronic obstructive pulmonary disease with multiple exacerbations and multiple hospitalizations. 2. Hypertension. 3. Hypothyroidism. 4. Hyperlipidemia. 5. Anxiety. 6. Peripheral vascular disease. 7. Pericarditis in 2009. 8. B12 deficiency. 9. Chronic tobacco abuse in a COPD patient who wears chronic O2. 10. Osteoporosis. 11. Atrial fibrillation. PAST SURGICAL HISTORY: 1. Laminectomy. 2. Tubal ligation. OUTPATIENT MEDICATIONS: Per the EMR and awaiting verification. ALLERGIES: PENICILLIN AND SULFA. FAMILY HISTORY: Noncontributory. SOCIAL HISTORY: The patient is . She has just recently quit smoking but has an extensive smoking history. She denies any alcohol or illicit drug use. REVIEW OF SYSTEMS: Ten point review of systems is negative with the exception of weakness and postoperative right hip pain. PHYSICAL EXAMINATION: VITAL SIGNS: She is afebrile, heart rate 87, blood pressure 116/77, respiratory rate 18, O2 sats are 92% on 2 liters nasal cannula. GENERAL: This is a 75 year-old female patient who is lying in her hospital bed. She is in no acute distress. HEENT: Normocephalic and atraumatic. Pupils are equal and reactive. NECK: Supple without mass. There is no jugular venous distention. CHEST: Somewhat distant lung sounds and slightly diminished at the bases. There is equal rise and fall of the chest with inspiration and expiration. CARDIOVASCULAR: Regular rate and rhythm. She does have an occasional irregular beat. ABDOMEN: Soft, nondistended, non-tender. Bowel sounds are positive. EXTREMITIES: There is no edema to her bilateral lower extremities. She does have a dressing on her right lateral hip that is dry and intact. SKIN: Most of her right side is very ecchymotic from the mid thigh extending up to the right axilla. Her abdomen on the right side is ecchymotic and extends down into the labia as well as to the proximal anterior right arm to the elbow. She states that she does have a history of bruising and the ecchymosis is from the fall. NEUROLOGIC: She is awake, alert and oriented times three. LABORATORY AND RADIOLOGY: Labs and films are per the records from [facility] and there are none available at this hospital at this time. ASSESSMENT: 1. Right hip fracture status post surgical repair of the right hip being admitted to the hospital for Swing Bed admission and for strengthening and conditioning. 2. Extensive history of chronic obstructive pulmonary disease with multiple exacerbations and hospitalizations. 3. Atrial fibrillation. 4. Anxiety. 5. Chronic tobacco abuse. 6. Hypertension. 7. Hypothyroidism. PLAN: We will admit the patient for Swing Bed. She will be evaluated by Physical Therapy tomorrow morning. It is to be noted that her surgery was on Sunday and per the patient, the only time that she has ambulated in [place],was when she transferred from the bed to the chair. She also says that she has not had any kind of physical therapy. I have not reviewed the PT records. She is on Eliquis and I will resume her medications from the hospital. Will encourage good pulmonary toilet. I have started breathing treatments on her. Will watch her closely and followup as needed. Dr. Valiente is the supervising physician available for consultation. #[id number] [facility]
--- NOTE | 2016-05-06 18:46 | PCM.CORE ---
Physician DVT/VTE - Prophylaxis Currently: Patient already on anticoagulation therapy - Nurse DVT Assessment & Total Each Risk Factor Represents 5 Points: Hip,Pelvis,leg Fx <1month Each Risk Factor Represents 3 Points: Age over 75 years Each Risk Factor Represents 1 Point: Hx Major Surgery <1month Each Risk Factor is 1 Point: Varicose Veins/Edema Legs, Serious Lung disease ( pnemonia <1month, COPD, emphysema,etc) DVT Assessment Score: 11 - 5 or more Very High Risk Treatments: Early Ambulation *, Sequential Compression Device
[2016-05-06] MEDS: predniSONE 5 MG TAB PO SCH (21:30)
[2016-05-06] MEDS: MONTELUKAST SODIUM 10 MG TAB PO SCH (21:30)
[2016-05-07] MEDS: ALBUTEROL SULFATE 2.5 MG/3 ML VIAL NEB PRN (03:58)
[2016-05-07] MEDS: HYDROcodone 5MG/APAP 325MG 1 EA TAB PO PRN ×3 (04:15→21:24)
[2016-05-07] MEDS: LEVOTHYROXINE SODIUM 0.1 MG TAB PO SCH (06:30)
[2016-05-07] MEDS: ALBUTEROL SULFATE 2.5 MG/3 ML VIAL NEB SCH ×4 (08:27→20:18)
[2016-05-07] MEDS: TIOTROPIUM INHALER INH SCH (08:27)
[2016-05-07] MEDS: NON-FORMULARY MEDICATION 1 EA MIS (Arformoterol Tartrate [Brovana] 15 MCG) IN SCH ×2 (08:27→20:18)
[2016-05-07] MEDS: AMIODARONE HCL 200 MG TAB PO SCH (09:14)
[2016-05-07] MEDS: predniSONE 10 MG TAB PO SCH (09:14)
[2016-05-07] MEDS: NON-FORMULARY MEDICATION 1 EA MIS (Roflumilast [Daliresp] 500 MCG) PO SCH (09:14)
[2016-05-07] MEDS: METOPROLOL SUCCINATE XL 100 MG TAB PO SCH (09:14)
[2016-05-07] MEDS: APIXABAN 2.5 MG TAB PO SCH ×2 (09:14→21:27)
[2016-05-07] MEDS: DOCUSATE SODIUM 100 MG CAP PO SCH ×2 (09:14→21:30)
[2016-05-07] MEDS: GABAPENTIN 100 MG CAP PO SCH ×2 (09:14→21:26)
[2016-05-07] MEDS: FUROSEMIDE 40 MG TAB PO SCH ×2 (09:14→21:26)
[2016-05-07] MEDS: LORazepam 0.5 MG TAB PO PRN ×2 (14:10→21:25)
[2016-05-07] MEDS ORDERED: NYSTATIN SUSPENSION 5 ML UD ONE (14:26)
[2016-05-07] MEDS: BENZOCAINE-MENTH LOZ (CEPACOL) 1 EA LOZ MT PRN ×2 (15:41→19:20)
[2016-05-07] MEDS: NYSTATIN SUSPENSION 5 ML UD MT SCH ×2 (16:52→21:24)
--- NOTE | 2016-05-07 20:36 | PN ---
DATE: 05/07/16 SUBJECTIVE: Today is the second day of the patient's Swing Bed rehabilitation status. Still with serous drainage from the incision with dea in place right hip. She has some swelling, but there are significant areas of ecchymosis and bruising which no doubt contributes to the swelling. No shortness of breath. The patient refuses to use the SCDs because of "claustrophobia." Encouraged to breathe deeply and continues on Eliquis anticoagulation. OBJECTIVE: Afebrile, pulse 71, blood pressure 113/60, saturation 98%. LUNGS: Clear. HEART: Tones regular. The patient is awake and alert, and in no distress. The wound on the lateral right hip is still draining a yellowish clear serous drainage which will be cultured after cleansing of the area with diluted Hibiclens and then collecting the wound culture straight from the depths of the wound. Significant ecchymosis around the area from the recent hip surgery. Again strongly encouraged to contract muscles of the lower extremities and to breathe deeply to help with DVT prophylaxis. ASSESSMENT: 1. Recent right hip fracture status post surgical repair of the right hip and being admitted now for Swing Bed rehabilitation with strengthening and conditioning. 2. Extensive history of chronic obstructive pulmonary disease with multiple exacerbations currently stable. 3. History of chronic atrial fibrillation. 4. Chronic anxiety. 5. Chronic tobacco abuse. 6. History of hypertension. 7. History of hypothyroidism on supplementation. PLAN: Will continue with Eliquis, deep breathing and muscle contractions in an effort to prevent DVT formation. Await culture results. Continue with physical therapy in the morning and observe basic response. When stable, will be able to be continued with close followup with Dr. Valiente in the clinic. #[id number] [facility]
[2016-05-07] MEDS: MONTELUKAST SODIUM 10 MG TAB PO SCH (21:26)
[2016-05-07] MEDS: predniSONE 5 MG TAB PO SCH (21:29)
[2016-05-08] MEDS: ALBUTEROL SULFATE 2.5 MG/3 ML VIAL NEB PRN (03:47)
[2016-05-08] MEDS: LEVOTHYROXINE SODIUM 0.1 MG TAB PO SCH (06:19)
[2016-05-08] MEDS: ALBUTEROL SULFATE 2.5 MG/3 ML VIAL NEB SCH ×4 (08:16→20:22)
[2016-05-08] MEDS: NON-FORMULARY MEDICATION 1 EA MIS (Arformoterol Tartrate [Brovana] 15 MCG) IN SCH ×2 (08:16→20:22)
[2016-05-08] MEDS: TIOTROPIUM INHALER INH SCH (08:16)
[2016-05-08] MEDS: DOCUSATE SODIUM 100 MG CAP PO SCH ×2 (10:47→21:42)
[2016-05-08] MEDS: GABAPENTIN 100 MG CAP PO SCH ×2 (10:52→21:38)
[2016-05-08] MEDS: APIXABAN 2.5 MG TAB PO SCH ×2 (10:52→21:38)
[2016-05-08] MEDS: AMIODARONE HCL 200 MG TAB PO SCH (10:52)
[2016-05-08] MEDS: LORazepam 0.5 MG TAB PO PRN (10:52)
[2016-05-08] MEDS: FUROSEMIDE 40 MG TAB PO SCH ×2 (10:52→21:38)
[2016-05-08] MEDS: NON-FORMULARY MEDICATION 1 EA MIS (Roflumilast [Daliresp] 500 MCG) PO SCH (10:53)
[2016-05-08] MEDS: METOPROLOL SUCCINATE XL 100 MG TAB PO SCH (10:53)
[2016-05-08] MEDS: NYSTATIN SUSPENSION 5 ML UD MT SCH ×4 (10:55→21:38)
[2016-05-08] MEDS: predniSONE 10 MG TAB PO SCH (10:57)
[2016-05-08] MEDS: BENZOCAINE-MENTH LOZ (CEPACOL) 1 EA LOZ MT PRN ×2 (12:27→17:01)
--- NOTE | 2016-05-08 13:16 | US ---
Study: Right lower extremity venous Doppler sonogram. Indication: swollen leg Technical: Multiplanar grayscale and Doppler sonographic images of the deep veins of the right lower extremity obtained. Findings: There is no sonographic evidence of deep venous thrombosis. The deep veins of the right lower extremity compress normally and have appropriate duplex waveforms. Normal flow augmentation is noted as well. Subcutaneous edema right lower leg. Conclusion: No sonographic evidence of deep venous thrombosis of the right lower extremity. Electronically signed by: Solitario Beaver MD 05/08/2016 1:15 PM [employer]
[2016-05-08] MEDS: HYDROcodone 5MG/APAP 325MG 1 EA TAB PO PRN (19:33)
[2016-05-08] MEDS ORDERED: LORazepam 1 MG TAB PO SCH (21:00)
[2016-05-08] MEDS: predniSONE 5 MG TAB PO SCH (21:38)
[2016-05-08] MEDS: MONTELUKAST SODIUM 10 MG TAB PO SCH (21:38)
[2016-05-09] MEDS: ALBUTEROL SULFATE 2.5 MG/3 ML VIAL NEB PRN (03:31)
[2016-05-09] MEDS: LORazepam 1 MG TAB PO PRN ×3 (03:40→20:53)
[2016-05-09] MEDS: LEVOTHYROXINE SODIUM 0.1 MG TAB PO SCH (06:22)
[2016-05-09] MEDS: ALBUTEROL SULFATE 2.5 MG/3 ML VIAL NEB SCH ×3 (09:00→20:11)
[2016-05-09] MEDS: GABAPENTIN 100 MG CAP PO SCH ×2 (09:08→20:53)
[2016-05-09] MEDS: AMIODARONE HCL 200 MG TAB PO SCH (09:08)
[2016-05-09] MEDS: APIXABAN 2.5 MG TAB PO SCH ×2 (09:08→20:54)
[2016-05-09] MEDS: NYSTATIN SUSPENSION 5 ML UD MT SCH ×3 (09:08→16:43)
[2016-05-09] MEDS: METOPROLOL SUCCINATE XL 100 MG TAB PO SCH (09:08)
[2016-05-09] MEDS: HYDROcodone 5MG/APAP 325MG 1 EA TAB PO PRN ×2 (09:08→20:54)
[2016-05-09] MEDS: DOCUSATE SODIUM 100 MG CAP PO SCH ×3 (09:08→21:00)
[2016-05-09] MEDS: predniSONE 10 MG TAB PO SCH (09:08)
[2016-05-09] MEDS: FUROSEMIDE 40 MG TAB PO SCH (09:09)
[2016-05-09] MEDS: NON-FORMULARY MEDICATION 1 EA MIS (Roflumilast [Daliresp] 500 MCG) PO SCH (09:09)
[2016-05-09] MEDS: NON-FORMULARY MEDICATION 1 EA MIS (Arformoterol Tartrate [Brovana] 15 MCG) IN SCH ×2 (09:15→20:11)
[2016-05-09] MEDS: TIOTROPIUM INHALER INH SCH (10:30)
[2016-05-09] MEDS: BENZOCAINE-MENTH LOZ (CEPACOL) 1 EA LOZ MT PRN ×2 (15:49→20:53)
[2016-05-09] MEDS: MONTELUKAST SODIUM 10 MG TAB PO SCH (20:52)
--- NOTE | 2016-05-09 20:57 | PN ---
DATE: 05/09/16 SUBJECTIVE: The patient is sitting up and is very alert and cooperative. Still with draining from the lateral aspect of the right hip incision. Less swelling is evident in that right lower extremity. Still with large areas of ecchymosis. Still with sore throat noted after surgery probably related to the intubation and its process of introduction. Appetite is good and in fact the cardiac diet is less than what she would wish and will change accordingly. She is on Cepastat lozenges which help her sore throat a little bit. OBJECTIVE: Afebrile, pulse 68, blood pressure 107/56, room air saturation 100% . No lab. Recent DVT exam of the right lower extremity reveals no DVT. LUNGS : Otherwise clear. HEART: Tones regular. Dressing changes continue on the right hip and culture did reveal apparent skin contamination. ASSESSMENT: 1. Recent right hip fracture status post surgical repair of the right hip admitted to Swing Bed rehab for strengthening and conditioning. 2. Chronic obstructive pulmonary disease with multiple exacerbations currently stable. 3. History of chronic atrial fibrillation but a basic regular rhythm at this time. 4. Chronic anxiety. 5. Chronic tobacco abuse. 6. History of hypertension. 7. History of hypothyroidism on supplementation. 8. History of sore throat since surgery slowly improving. 9. Drainage of serous material from the right hip incision. No culture positive results at this time and continue with dressing changes. PLAN: Continue with her current treatment program. To discuss with rehab therapist to evaluate when they feel that she will be able to return home safely. Reevaluate. #[id number] [facility]
[2016-05-09] MEDS ORDERED: DOCUSATE SODIUM 100 MG CAP PO PRN (22:29)
[2016-05-10] MEDS: LEVOTHYROXINE SODIUM 0.1 MG TAB PO SCH (06:26)
[2016-05-10] MEDS: NON-FORMULARY MEDICATION 1 EA MIS (Arformoterol Tartrate [Brovana] 15 MCG) IN SCH ×2 (07:30→19:35)
[2016-05-10] MEDS: ALBUTEROL SULFATE 2.5 MG/3 ML VIAL NEB SCH ×4 (07:30→19:35)
[2016-05-10] MEDS ORDERED: FUROSEMIDE 40 MG TAB ONE (07:36)
[2016-05-10] MEDS: NON-FORMULARY MEDICATION 1 EA MIS (Roflumilast [Daliresp] 500 MCG) PO SCH (08:43)
[2016-05-10] MEDS: AMIODARONE HCL 200 MG TAB PO SCH (08:44)
[2016-05-10] MEDS: GABAPENTIN 100 MG CAP PO SCH ×2 (08:44→20:31)
[2016-05-10] MEDS: FUROSEMIDE 40 MG TAB PO SCH (08:44)
[2016-05-10] MEDS: METOPROLOL SUCCINATE XL 100 MG TAB PO SCH (08:45)
[2016-05-10] MEDS: APIXABAN 2.5 MG TAB PO SCH ×2 (08:45→20:30)
[2016-05-10] MEDS: predniSONE 10 MG TAB PO SCH (08:45)
[2016-05-10] MEDS: LORazepam 1 MG TAB PO PRN ×2 (08:52→20:31)
[2016-05-10] MEDS: TIOTROPIUM INHALER INH SCH (09:26)
[2016-05-10] MEDS: HYDROcodone 5MG/APAP 325MG 1 EA TAB PO PRN ×2 (12:26→20:05)
--- NOTE | 2016-05-10 19:57 | PN ---
DATE: 05/10/16 SUBJECTIVE: The patient is generally stable but is still having significant serous yellowish thin secretions out the right hip incision. To this will be applied some elastic absorptive dressing on a twice a day basis in an attempt to try to decrease some of that fluid drainage. If not assisting, then consider Dr. Wall consult to see if there is a specific reason or if anything can be done to assist. Hopefully in time the draining will eventually go away. PLAN: Continue with reevaluation. #[id number] [facility]
[2016-05-10] MEDS: MONTELUKAST SODIUM 10 MG TAB PO SCH (20:31)
[2016-05-11] MEDS: ALBUTEROL SULFATE 2.5 MG/3 ML VIAL NEB PRN (01:52)
[2016-05-11] MEDS: HYDROcodone 5MG/APAP 325MG 1 EA TAB PO PRN ×4 (01:58→20:25)
[2016-05-11] MEDS: LEVOTHYROXINE SODIUM 0.1 MG TAB PO SCH (06:24)
[2016-05-11] MEDS: NON-FORMULARY MEDICATION 1 EA MIS (Arformoterol Tartrate [Brovana] 15 MCG) IN SCH ×2 (09:00→20:35)
[2016-05-11] MEDS: TIOTROPIUM INHALER INH SCH (09:00)
[2016-05-11] MEDS: ALBUTEROL SULFATE 2.5 MG/3 ML VIAL NEB SCH ×4 (09:00→20:35)
[2016-05-11] MEDS: FUROSEMIDE 40 MG TAB PO SCH (09:46)
[2016-05-11] MEDS: GABAPENTIN 100 MG CAP PO SCH ×2 (09:46→20:25)
[2016-05-11] MEDS: METOPROLOL SUCCINATE XL 100 MG TAB PO SCH (09:46)
[2016-05-11] MEDS: predniSONE 10 MG TAB PO SCH (09:46)
[2016-05-11] MEDS: AMIODARONE HCL 200 MG TAB PO SCH (09:46)
[2016-05-11] MEDS: NON-FORMULARY MEDICATION 1 EA MIS (Roflumilast [Daliresp] 500 MCG) PO SCH (09:47)
[2016-05-11] MEDS: APIXABAN 2.5 MG TAB PO SCH ×2 (09:47→20:25)
[2016-05-11] MEDS: LORazepam 1 MG TAB PO PRN ×2 (09:50→20:25)
[2016-05-11] MEDS ORDERED: POTASSIUM CHLORIDE 20 MEQ TAB PO ONE (12:53)
[2016-05-11] MEDS: MONTELUKAST SODIUM 10 MG TAB PO SCH (20:24)
[2016-05-12] MEDS: ALBUTEROL SULFATE 2.5 MG/3 ML VIAL NEB PRN (03:50)
[2016-05-12] MEDS: LEVOTHYROXINE SODIUM 0.1 MG TAB PO SCH (06:57)
[2016-05-12] MEDS: BENZOCAINE-MENTH LOZ (CEPACOL) 1 EA LOZ MT PRN (07:18)
[2016-05-12] MEDS: ALBUTEROL SULFATE 2.5 MG/3 ML VIAL NEB SCH ×4 (08:28→20:25)
[2016-05-12] MEDS: NON-FORMULARY MEDICATION 1 EA MIS (Arformoterol Tartrate [Brovana] 15 MCG) IN SCH ×2 (08:56→20:12)
[2016-05-12] MEDS ORDERED: ALENDRONATE SODIUM TAB 70 MG TAB PO SCH (09:00)
[2016-05-12] MEDS: METOPROLOL SUCCINATE XL 100 MG TAB PO SCH (09:24)
[2016-05-12] MEDS: HYDROcodone 5MG/APAP 325MG 1 EA TAB PO PRN ×2 (09:25→10:38)
[2016-05-12] MEDS: GABAPENTIN 100 MG CAP PO SCH ×2 (09:25→20:49)
[2016-05-12] MEDS: predniSONE 10 MG TAB PO SCH (09:25)
[2016-05-12] MEDS: LORazepam 1 MG TAB PO PRN ×2 (09:25→20:50)
[2016-05-12] MEDS: FUROSEMIDE 40 MG TAB PO SCH (09:25)
[2016-05-12] MEDS: APIXABAN 2.5 MG TAB PO SCH ×2 (09:25→20:49)
[2016-05-12] MEDS: AMIODARONE HCL 200 MG TAB PO SCH (09:25)
[2016-05-12] MEDS: TIOTROPIUM INHALER INH SCH (09:27)
[2016-05-12] MEDS: NON-FORMULARY MEDICATION 1 EA MIS (Roflumilast [Daliresp] 500 MCG) PO SCH (09:28)
[2016-05-12] MEDS: MONTELUKAST SODIUM 10 MG TAB PO SCH (20:49)
[2016-05-13] MEDS: ALBUTEROL SULFATE 2.5 MG/3 ML VIAL NEB PRN (02:36)
[2016-05-13] MEDS: HYDROcodone 5MG/APAP 325MG 1 EA TAB PO PRN ×3 (03:26→20:58)
[2016-05-13] MEDS: LEVOTHYROXINE SODIUM 0.1 MG TAB PO SCH (06:30)
[2016-05-13] MEDS: LORazepam 1 MG TAB PO PRN ×2 (07:04→20:58)
[2016-05-13] MEDS: BENZOCAINE-MENTH LOZ (CEPACOL) 1 EA LOZ MT PRN (07:07)
[2016-05-13] MEDS: NON-FORMULARY MEDICATION 1 EA MIS (Roflumilast [Daliresp] 500 MCG) PO SCH (08:35)
[2016-05-13] MEDS: predniSONE 10 MG TAB PO SCH (08:35)
[2016-05-13] MEDS: FUROSEMIDE 40 MG TAB PO SCH (08:35)
[2016-05-13] MEDS: AMIODARONE HCL 200 MG TAB PO SCH (08:35)
[2016-05-13] MEDS: GABAPENTIN 100 MG CAP PO SCH ×2 (08:36→20:57)
[2016-05-13] MEDS: TIOTROPIUM INHALER INH SCH (08:36)
[2016-05-13] MEDS: METOPROLOL SUCCINATE XL 100 MG TAB PO SCH (08:36)
[2016-05-13] MEDS: APIXABAN 2.5 MG TAB PO SCH ×2 (08:36→20:57)
[2016-05-13] MEDS: ALBUTEROL SULFATE 2.5 MG/3 ML VIAL NEB SCH ×4 (08:37→20:15)
[2016-05-13] MEDS: NON-FORMULARY MEDICATION 1 EA MIS (Arformoterol Tartrate [Brovana] 15 MCG) IN SCH ×2 (08:39→20:15)
--- NOTE | 2016-05-13 12:51 | PN ---
DATE: 05/13/16 SUPERVISING PHYSICIAN: Danny Martin M.D. SUBJECTIVE: The patient is sitting up in her chair in her room. She is eating her lunch. She has no complaints at this time. OBJECTIVE: She is awake, alert and oriented times three. She is afebrile, heart rate 68, blood pressure 105/42, respiratory rate 18, O2 sat is 98%. ASSESSMENT: 1. Recent right hip fracture status post surgical repair of the right hip admitted to Swing Bed rehab for strengthening and conditioning. 2. Chronic obstructive pulmonary disease with multiple exacerbations currently stable. 3. History of chronic atrial fibrillation but a basic regular rhythm at this time. 4. Chronic anxiety. 5. Chronic tobacco abuse. 6. History of hypertension. 7. History of hypothyroidism on supplementation. 8. History of sore throat since surgery slowly improving. 9. Drainage of serous material from the right hip incision. No culture positive results at this time and continue with dressing changes. PLAN: We will continue with her current treatment plan, including her strengthening and conditioning per Physical Therapy. Will reevaluate on Sunday as to when her discharge will be from the hospital. I believe she has Home Health and we will need to begin discharge planning for that. Otherwise we will continue to monitor her and followup as needed. #[id number] [facility]
[2016-05-13] MEDS: MONTELUKAST SODIUM 10 MG TAB PO SCH (20:57)
[2016-05-14] MEDS: HYDROcodone 5MG/APAP 325MG 1 EA TAB PO PRN ×3 (04:02→21:29)
[2016-05-14] MEDS: ALBUTEROL SULFATE 2.5 MG/3 ML VIAL NEB PRN (04:12)
[2016-05-14] MEDS: LEVOTHYROXINE SODIUM 0.1 MG TAB PO SCH (06:44)
[2016-05-14] MEDS: GABAPENTIN 100 MG CAP PO SCH ×2 (08:34→21:30)
[2016-05-14] MEDS: METOPROLOL SUCCINATE XL 100 MG TAB PO SCH (08:34)
[2016-05-14] MEDS: NON-FORMULARY MEDICATION 1 EA MIS (Roflumilast [Daliresp] 500 MCG) PO SCH (08:34)
[2016-05-14] MEDS: AMIODARONE HCL 200 MG TAB PO SCH (08:34)
[2016-05-14] MEDS: APIXABAN 2.5 MG TAB PO SCH ×2 (08:34→21:30)
[2016-05-14] MEDS: LORazepam 1 MG TAB PO PRN ×2 (08:35→21:30)
[2016-05-14] MEDS: FUROSEMIDE 40 MG TAB PO SCH (08:35)
[2016-05-14] MEDS: TIOTROPIUM INHALER INH SCH (08:45)
[2016-05-14] MEDS: ALBUTEROL SULFATE 2.5 MG/3 ML VIAL NEB SCH ×5 (08:45→20:06)
[2016-05-14] MEDS: NON-FORMULARY MEDICATION 1 EA MIS (Arformoterol Tartrate [Brovana] 15 MCG) IN SCH ×2 (08:50→20:06)
[2016-05-14] MEDS: predniSONE 10 MG TAB PO SCH (09:08)
--- NOTE | 2016-05-14 14:48 | PN ---
DATE: 05/14/16 SUPERVISING PHYSICIAN: Danny Martin M.D. SUBJECTIVE: The patient is sitting in the bedside chair. She is doing well. She is slowly getting her strength back. Her oxygenation remains good with no significant decrease in her respiratory efforts or evidence of any exacerbation of her COPD. OBJECTIVE: VITAL SIGNS: T max 97.4, pulse 70, blood pressure 93/50, respirations 18, O2 sat showing 97% on nasal cannula at 2 liters at rest. I's and O's are fairly balanced with positive balance of 230 with 1280 in, 1050 out. Weight 69.89 kg. The patient had a bowel movement on 05/13/16. GENERAL: The patient appears to be doing well. CHEST: Clear to auscultation. HEART: Regular rate and rhythm. She continues with dressing to the right hip with no obvious infection. Pulses distally are strong, capillary refill is brisk. EXTREMITIES: Right leg shows 1 to 2+ edema with notable redness to both heels. ASSESSMENT: 1. Recent hip fracture status post surgical repair of the right hip having been admitted to Swing Bed rehabilitation for strengthening and conditioning. 2. Chronic obstructive pulmonary disease with multiple exacerbations, stable. 3. History of chronic atrial fibrillation currently in normal rhythm. 4. Chronic anxiety. 5. Chronic tobacco abuse. 6. History of hypertension. 7. History of hypothyroidism on supplementation. 8. History of sore throat since surgery, resolved. 9. Drainage of serous material from the right hip incision with cultures being negative for any organisms of significance other than skin contamination with a negative Staphylococcus. PLAN: Will continue with Swing Bed rehabilitation and strengthening through the direction of Physical Therapy. Anticipation of discharge probably tomorrow with concerns for the patient being at risk for falls possibly needing Home Health, physical therapy or consideration for maybe substitute crossing guard rehab facility. Will address this tomorrow with Physical Therapy. Until then, continue to monitor the patient closely and treat appropriately. #[id number] [facility]
[2016-05-14] MEDS: MONTELUKAST SODIUM 10 MG TAB PO SCH (21:29)
[2016-05-15] MEDS: ALBUTEROL SULFATE 2.5 MG/3 ML VIAL NEB PRN (05:20)
[2016-05-15] MEDS: HYDROcodone 5MG/APAP 325MG 1 EA TAB PO PRN ×3 (05:32→20:31)
[2016-05-15] MEDS: LORazepam 1 MG TAB PO PRN ×2 (05:32→20:31)
[2016-05-15] MEDS: LEVOTHYROXINE SODIUM 0.1 MG TAB PO SCH (07:03)
[2016-05-15] MEDS: APIXABAN 2.5 MG TAB PO SCH ×2 (09:02→20:30)
[2016-05-15] MEDS: FUROSEMIDE 40 MG TAB PO SCH (09:02)
[2016-05-15] MEDS: AMIODARONE HCL 200 MG TAB PO SCH (09:02)
[2016-05-15] MEDS: NON-FORMULARY MEDICATION 1 EA MIS (Arformoterol Tartrate [Brovana] 15 MCG) IN SCH ×2 (09:03→20:38)
[2016-05-15] MEDS: predniSONE 10 MG TAB PO SCH (09:03)
[2016-05-15] MEDS: GABAPENTIN 100 MG CAP PO SCH ×2 (09:03→20:30)
[2016-05-15] MEDS: NON-FORMULARY MEDICATION 1 EA MIS (Roflumilast [Daliresp] 500 MCG) PO SCH (09:04)
[2016-05-15] MEDS: METOPROLOL SUCCINATE XL 100 MG TAB PO SCH (09:07)
[2016-05-15] MEDS: ALBUTEROL SULFATE 2.5 MG/3 ML VIAL NEB SCH ×5 (09:36→20:38)
[2016-05-15] MEDS: TIOTROPIUM INHALER INH SCH (09:40)
[2016-05-15] MEDS: MONTELUKAST SODIUM 10 MG TAB PO SCH (20:30)
[2016-05-16] MEDS: HYDROcodone 5MG/APAP 325MG 1 EA TAB PO PRN ×5 (03:08→22:15)
[2016-05-16] MEDS: ALBUTEROL SULFATE 2.5 MG/3 ML VIAL NEB PRN (03:19)
[2016-05-16] MEDS: LEVOTHYROXINE SODIUM 0.1 MG TAB PO SCH (06:19)
[2016-05-16] MEDS: METOPROLOL SUCCINATE XL 100 MG TAB PO SCH (08:55)
[2016-05-16] MEDS: LORazepam 1 MG TAB PO PRN ×2 (08:55→21:05)
[2016-05-16] MEDS: APIXABAN 2.5 MG TAB PO SCH ×2 (08:55→21:05)
[2016-05-16] MEDS: AMIODARONE HCL 200 MG TAB PO SCH (08:55)
[2016-05-16] MEDS: predniSONE 10 MG TAB PO SCH (08:55)
[2016-05-16] MEDS: GABAPENTIN 100 MG CAP PO SCH ×2 (08:55→21:05)
[2016-05-16] MEDS: FUROSEMIDE 40 MG TAB PO SCH (08:55)
[2016-05-16] MEDS: NON-FORMULARY MEDICATION 1 EA MIS (Roflumilast [Daliresp] 500 MCG) PO SCH (08:57)
[2016-05-16] MEDS: ALBUTEROL SULFATE 2.5 MG/3 ML VIAL NEB SCH ×4 (09:12→20:13)
[2016-05-16] MEDS: NON-FORMULARY MEDICATION 1 EA MIS (Arformoterol Tartrate [Brovana] 15 MCG) IN SCH ×2 (09:12→20:13)
[2016-05-16] MEDS: TIOTROPIUM INHALER INH SCH (09:30)
[2016-05-16] MEDS: MONTELUKAST SODIUM 10 MG TAB PO SCH (21:05)
[2016-05-17] MEDS: ALBUTEROL SULFATE 2.5 MG/3 ML VIAL NEB PRN (05:10)
[2016-05-17] MEDS: LEVOTHYROXINE SODIUM 0.1 MG TAB PO SCH (06:19)
[2016-05-17] MEDS: HYDROcodone 5MG/APAP 325MG 1 EA TAB PO PRN ×3 (07:36→20:33)
[2016-05-17] MEDS: AMIODARONE HCL 200 MG TAB PO SCH (08:31)
[2016-05-17] MEDS: GABAPENTIN 100 MG CAP PO SCH ×2 (08:31→20:33)
[2016-05-17] MEDS: LORazepam 1 MG TAB PO PRN ×2 (08:31→20:33)
[2016-05-17] MEDS: APIXABAN 2.5 MG TAB PO SCH ×2 (08:32→20:33)
[2016-05-17] MEDS: NON-FORMULARY MEDICATION 1 EA MIS (Roflumilast [Daliresp] 500 MCG) PO SCH (08:33)
[2016-05-17] MEDS: predniSONE 10 MG TAB PO SCH (08:33)
[2016-05-17] MEDS: FUROSEMIDE 40 MG TAB PO SCH (08:33)
[2016-05-17] MEDS: METOPROLOL SUCCINATE XL 100 MG TAB PO SCH (08:34)
[2016-05-17] MEDS: TIOTROPIUM INHALER INH SCH (08:50)
[2016-05-17] MEDS: ALBUTEROL SULFATE 2.5 MG/3 ML VIAL NEB SCH ×4 (08:50→19:40)
[2016-05-17] MEDS: NON-FORMULARY MEDICATION 1 EA MIS (Arformoterol Tartrate [Brovana] 15 MCG) IN SCH ×2 (12:31→19:40)
[2016-05-17] MEDS: MONTELUKAST SODIUM 10 MG TAB PO SCH (20:33)
[2016-05-18] MEDS: HYDROcodone 5MG/APAP 325MG 1 EA TAB PO PRN ×2 (02:16→09:29)
[2016-05-18 06:22] VITALS: BP 99/53; TEMP 98.2
[2016-05-18] MEDS: LEVOTHYROXINE SODIUM 0.1 MG TAB PO SCH (06:26)
[2016-05-18] MEDS: NON-FORMULARY MEDICATION 1 EA MIS (Arformoterol Tartrate [Brovana] 15 MCG) IN SCH (07:39)
[2016-05-18] MEDS: ALBUTEROL SULFATE 2.5 MG/3 ML VIAL NEB SCH (07:39)
[2016-05-18 07:41] VITALS: O2SAT 97
[2016-05-18] MEDS: TIOTROPIUM INHALER INH SCH (09:09)
[2016-05-18] MEDS: AMIODARONE HCL 200 MG TAB PO SCH (09:27)
[2016-05-18] MEDS: METOPROLOL SUCCINATE XL 100 MG TAB PO SCH (09:28)
[2016-05-18] MEDS: predniSONE 10 MG TAB PO SCH (09:29)
[2016-05-18] MEDS: GABAPENTIN 100 MG CAP PO SCH (09:29)
[2016-05-18] MEDS: APIXABAN 2.5 MG TAB PO SCH (09:29)
[2016-05-18] MEDS: LORazepam 1 MG TAB PO PRN (09:29)
[2016-05-18] MEDS: NON-FORMULARY MEDICATION 1 EA MIS (Roflumilast [Daliresp] 500 MCG) PO SCH (09:30)
[2016-05-18] MEDS: FUROSEMIDE 40 MG TAB PO SCH (09:32)
--- NOTE | 2016-05-18 11:35 | DS ---
SUPERVISING PHYSICIAN: Danny Martin MD DISCHARGE DIAGNOSIS: 1. Recent hip fracture status post surgical repair of the right hip having been admitted to Swing Bed rehabilitation for strengthening and conditioning. 2. Chronic obstructive pulmonary disease with multiple exacerbations, stable. 3. History of chronic atrial fibrillation currently in normal rhythm. 4. Chronic anxiety. 5. Chronic tobacco abuse. 6. History of hypertension. 7. History of hypothyroidism on supplementation. 8. History of sore throat since surgery, resolved. 9. Drainage of serous material from the right hip incision with cultures being negative for any organisms of significance other than skin contamination with a negative Staphylococcus. HISTORY OF PRESENT ILLNESS: This is a 75-year-old female patient who broke her right hip tripping over oxygen tubing several weeks ago. She was admitted to the [facility] and she had had right hip surgery there per Dr. Angela, who is the orthopedic surgeon at [place]. Her surgery was on 05/01/16. On date of admission, she had been transferred to [facility] for strengthening and conditioning as a Swing Bed admission. Initially, she had had very little strengthening done at [place] as she had only transferred from the bed to the chair during her admission there. HOSPITAL COURSE: Her progress with physical therapy was very slow, but it did improve daily. She has a very extensive history of chronic obstructive pulmonary disease and her aggressive pulmonary toilet was continued. She continued to get her breathing treatments as well as her respiratory medications. She was also continued on Eliquis. Initially, she did not make much progress with her gait, but eventually she progressed to the point where she was able to ambulate in the hallways. She decided to go to [facility] for [facility] care including physical therapy and today, she will be discharged to [facility]. DISCHARGE PLAN: The patient will be discharged to [facility]. She is to resume her cardiac diet. She is to increase her activity as tolerated and as per physical therapy. [facility] will call Dr. Valiente' office for a followup appointment within one to two weeks. She is also to keep her followup appointment with Dr. Angela in [place]. DISCHARGE MEDICATIONS: 1. Ativan. 2. Synthroid. 3. Lasix. 4. Vitamin C. 5. Eliquis. 6. Amiodarone. 7. Brovana. 8. Neurontin. 9. Sennosides. 10. Pantoprazole. 11. Hydrocodone. 12. Colace. 13. Daliresp. 14. Multivitamins. 15. Prednisone 10 mg daily. 16. Fosamax. 17. Singulair. 18. Aspirin. 19. DuoNeb. 20. Metoprolol succinate. 21. Proventil nebulizers p.r.n. Dr. Martin is the collaborating physician and available for consultation. #[id number] [facility]
== END 2016-05-18 12:50 | DRG 561 ==
LOC: MS 19:10
PROVIDERS: ADMIT Nurse Practitioner Acute Care; ATTEND Nurse Practitioner Acute Care
DX: S72.001D Fracture of unspecified part of neck of right femur, subsequent encounter for closed fracture with routine healing (principal); J02.9 Acute pharyngitis, unspecified; J44.9 Chronic obstructive pulmonary disease, unspecified; I48.2 Chronic atrial fibrillation; I10 Essential (primary) hypertension; E03.9 Hypothyroidism, unspecified; E78.5 Hyperlipidemia, unspecified; F41.9 Anxiety disorder, unspecified; I73.9 Peripheral vascular disease, unspecified; M81.0 Age-related osteoporosis without current pathological fracture; E53.8 Deficiency of other specified B group vitamins; Z66 Do not resuscitate; Z99.81 Dependence on supplemental oxygen; Z88.0 Allergy status to penicillin; Z88.2 Allergy status to sulfonamides; Z87.891 Personal history of nicotine dependence; Z79.01 Long term (current) use of anticoagulants; Z79.899 Other long term (current) drug therapy

== ENCOUNTER → 2016-05-26 | Outpatient (CLI) | payer MEDICARE, OTHER | END | disposition home or self-care (01) | LOC: GT 08:44 | PROVIDERS: ATTEND Family Medicine | DX: Z00.00 Encounter for general adult medical examination without abnormal findings (principal); K21.9 Gastro-esophageal reflux disease without esophagitis; K59.00 Constipation, unspecified; I10 Essential (primary) hypertension; I48.91 Unspecified atrial fibrillation; J44.9 Chronic obstructive pulmonary disease, unspecified ==

== ENCOUNTER 2016-06-02 10:05 | Emergency (ER) | payer MEDICARE, OTHER ==
--- NOTE | 2016-06-02 11:27 | RAD ---
EXAM DESCRIPTION: Hip,Right 2 Views CLINICAL HISTORY: erythema at op site COMPARISON: May 01, 2012 intraoperative images IMPRESSION: 2 views of the right hip show intertrochanteric fracture. Intramedullary hardware with single distal interlocking screw is seen. The dynamic compression orthopedic screw is placed superior to the femoral head and neck and may be somewhat posterior to it. The screw extends several centimeters lateral to the proximal femur, and there is superior displacement of the distal fracture fragment compared to the proximal fracture fragment. The orthopedic hardware does not adequately fixate the intertrochanteric fracture and appears displaced relative to previous exam. Electronically signed by: Robbi Bhakta MD 06/02/2016 11:26 AM CDT
--- NOTE | 2016-06-02 11:58 | ED.PDOC ---
History of Present Illness - General Chief Complaint: Skin/Abrasion/Tear Time Seen by Provider: 06/02/16 10:08 Source: patient Exam Limitations: no limitations - History of Present Illness Initial Comments: the patient is a 75-year-old female presenting to the emergency room from the [facility] where she has been getting rehabilitation done. She was sent to emergency room secondary to extending erythema. Apparently over the last 3 days a very small amount of operative site erythema has turned into a much larger area approximately 30 cm x 20 cm in diameter. No drainage from the site. No fevers. No significant pain. The patient has had a very slow progression with her physical therapy on her functional status. The patient had a intertrochanteric fracture. Approximately 1-1/2 months ago at [place] with Dr. Angela. Dr. Angela is unavailable until the end of next week, according to the emergency room physician at [facility]. No fevers or chills. No increasing pain. Timing/Duration: unsure Severity: mild Improving Factors: nothing Worsening Factors: nothing Associated Symptoms: denies symptoms Allergies/Adverse Reactions: Allergies Penicillins Allergy (Verified 04/12/16 15:25) Rash Sulfa Drugs Allergy (Verified 04/12/16 15:25) Other Causes swelling to face Home Medications: Ambulatory Orders Levothyroxine Sodium [Synthroid] 0.1 mg PO ACBK 05/03/15 Lorazepam [Ativan] 1 mg PO TID PRN 05/03/15 Ascorbic Acid [Vitamin C] 1,000 mg PO DAILY 12/20/15 Furosemide [Lasix] 40 mg PO BID 12/20/15 Apixaban [Eliquis] 5 mg PO BID 03/27/16 Amiodarone HCl 200 mg PO DAILY #30 tab 04/03/16 Arformoterol Tartrate [Brovana] 15 mcg IN BID #60 ml 04/03/16 Gabapentin [Neurontin] 100 mg PO BID #60 cap 04/03/16 Alendronate Sodium [Fosamax] 70 mg PO WKLY 05/05/16 Aspirin [Aspirin Adult Low Dose] 1 ea PO DAILY 05/05/16 Docusate Sodium [Colace] 100 mg PO BID 05/05/16 HYDROcodone 5MG/APAP 325MG [[place]mont 5/325] 1 - 2 ea PO Q4H PRN 05/05/16 Montelukast Sodium 10 mg PO BEDTIME 05/05/16 Multiple Vitamins W/ Minerals [Multi Complete] 1 cap PO DAILY 05/05/16 Pantoprazole Sodium [Protonix] 40 mg PO DAILY 05/05/16 Roflumilast [Daliresp] 500 mcg PO DAILY 05/05/16 Sennosides [Senna] 8.6 mg PO BID PRN 05/05/16 predniSONE [Prednisone] 5 mg PO BEDTIME 05/05/16 predniSONE [Prednisone] 10 mg PO DAILY 05/05/16 Albuterol Sulfate Nebs [Proventil Nebs] 1 ea INH QID PRN #0 05/18/16 Ipratropium/Albuterol [Duoneb] 3 ml NEB QID #120 vial 05/18/16 LORazepam [Ativan] 1 mg PO TID PRN #90 tab 05/18/16 Metoprolol Succinate [Toprol Xl] 100 mg PO DAILY #0 tab.er.24 05/18/16 Review of Systems - Review of Systems Review of Systems: 06/02/16 11:58 compared to baseline: Constitutional: States: no symptoms reported EENTM: States: no symptoms reported Respiratory: States: no symptoms reported, see HPI - Chronic problems Cardiology: States: no symptoms reported Gastrointestinal/Abdominal: States: no symptoms reported Genitourinary: States: no symptoms reported Skin: States: no symptoms reported Neurological: States: no symptoms reported Endocrine: States: no symptoms reported All other Systems: No Change from Baseline Past Medical History (General) - Patient Medical History Hx Seizures: No Hx Stroke: No Hx Dementia: No Hx Asthma: Yes Hx of COPD: Yes Hx Cardiac Disorders: Yes Hx Congestive Heart Failure: No Hx Pacemaker: No Hx Hypertension: Yes Hx Thyroid Disease: Yes Hx Diabetes: No Hx Gastroesophageal Reflux: Yes Hx Renal Disease: No Hx Cancer: No Hx of HIV: No Hx Hepatitis C: No Hx MRSA: No Surgical History: other - Vaccination History Hx Tetanus, Diphtheria Vaccination: Yes Hx Influenza Vaccination: Yes Hx Pneumococcal Vaccination: Yes Immunizations Up to Date: Yes - Social History Hx Tobacco Use: Yes - Quit smoking in March, Years Tobacco Use: 55 Cigarettes Packs Per Day: 1 Hx Chewing Tobacco Use: No Hx Alcohol Use: No Hx Substance Use: No Hx Substance Use Treatment: No Hx Depression: No Feels Threatened In Home Enviroment: No Hx Physical Abuse: No Hx Emotional Abuse: No Hx Suspected Abuse: No - Activities of Daily Living Long Term/Assisted Living (if applicable):: [facility] Agency (if applicable):: None - Female History Patient is a Female of Child Bearing Age (10 -59 yrs old): No Patient : No Family Medical History - Family History Mother Family History: No Known Name: Belle Villela Living Status: Age at (years of age): 85 Hx Family Asthma: No Hx Family Congestive Heart Failure: No Hx Family Hypertension: No Hx Family Stroke: No Hx Cardiac Disease: No Hx Family Diabetes: No Hx Family Cancer: No Hx Family;Other: Bowel obstruction Father Name: Sreedhar Villela Living Status: Age at (years of age): 79 Cause of : Heart Attack Hx Family Congestive Heart Failure: Yes Hx Family Hypertension: Yes Hx Cardiac Disease: Yes Brother Living Status: Age at (years of age): 90 Hx Family Asthma: Yes - emphysema Hx Family Cancer: Yes - Prostate Physical Exam - Physical Exam General Appearance: Alert, Comfortable, No apparent distress Eye Exam: bilateral normal Ears, Nose, Throat: other - nasal cannulas in place. Oropharynx is clear. Nares clear. Hearing is slightly decreased bilaterally but this is chronic. Neck: full range of motion, supple Respiratory: chest non-tender, no respiratory distress, no accessory muscle use , decreased breath sounds - chronic, other - mild bibasilar rales which are chronic. Cardiovascular/Chest: normal peripheral pulses, no edema, other - currently regular rate Peripheral Pulses: radial,right: 2+, radial,left: 2+, dorsalis pedis,right: 2+, dorsalis pedis,left: 2+ Gastrointestinal/Abdominal: non tender, soft Rectal Exam: deferred Back Exam: normal inspection Extremity: no pedal edema, no calf tenderness, normal capillary refill Neurologic: alert, normal mood/affect, oriented x 3 Skin Exam: other - significant erythema surrounding the right hip operative site as described above. No drainage. No evidence of wound dehiscence at this time. Comments: Vital Signs - 24 hr 06/02/16 06/02/16 10:10 10:19 Temperature 98.5 F Pulse Rate [ 80 Apical] Respiratory 20 20 Rate Blood Pressure 130/63 [Left Arm] O2 Sat by Pulse 97 Oximetry Progress - Progress Progress: 06/02/16 12:01 the patient is a 75-year-old female presenting with cellulitis over a right hip operative site that was performed approximately 1-1/2 months ago. Original operating surgeon is out of town until the end of next week according to the emergency room doctor [facility]. our operating room here is down for the next 2 weeks due to technical difficulties. The patient will be transferred for orthopedic evaluation and possibly evaluation by infectious disease. No antibiotics have been given at this time. Cultures have been taken. No evidence of sepsis clinically at this time. Transfer for higher level of care and further operative intervention if warranted. There is question of concern of a adequate surgical repair given the x-ray findings. - Results/Orders Results/Orders: 06/02/16 10:40 ERYTHROCYTE SEDIMENTATION RATE Stat pending at this time BLOOD CULTURE Stat Laboratory Results - last 24 hr 06/02/16 10:40 WBC 20.5 H* RBC 4.11 L Hgb 12.2 Hct 37.5 MCV 91.2 MCH 29.6 MCHC 32.4 L RDW 21.2 H Plt Count 513 H MPV 7.3 L Absolute Neuts (auto) 19.00 H Absolute Lymphs (auto) 0.50 L Absolute Monos (auto) 0.90 H Absolute Eos (auto) 0.00 Absolute Basos (auto) 0.00 Neutrophils % 92.9 H Neutrophils % (Manual) 86.0 Lymphocytes % 2.6 L Lymphocytes % (Manual) 11.0 Monocytes % 4.3 Monocytes % (Manual) 3.0 Eosinophils % 0.1 L Basophils % 0.1 Normal RBC Morphology 1+toxic granulation PT 13.9 H INR 1.230 PTT (SP) 32.6 Sodium 138 Potassium 3.4 L Chloride 100 L Carbon Dioxide 31 Anion Gap 10.4 L BUN 13 Creatinine 0.70 BUN/Creatinine Ratio 18.6 Random Glucose 146 H Serum Osmolality 278.4 Calcium 8.3 L Total Bilirubin 0.6 AST 17 ALT 12 Alkaline Phosphatase 183 H C-Reactive Protein 6.0 H Serum Total Protein 5.9 L Albumin 3.0 L Globulin 2.9 Albumin/Globulin Ratio 1.0 L right hip x-ray shows the intramedullary johnathon in place. The diagonal fixator screw appears to be superior to the femur neck it should be embedded in. This is possibly an inadequate operative repair Departure - Departure Clinical Impression: Postoperative wound infection of right hip Qualifiers: Encounter type: initial encounter Qualifier Code: (T81.4XXA) Infection following a procedure, initial encounter Disposition: Transfer to Hospital Home Medications: Ambulatory Orders Levothyroxine Sodium [Synthroid] 0.1 mg PO ACBK 05/03/15 Lorazepam [Ativan] 1 mg PO TID PRN 05/03/15 Ascorbic Acid [Vitamin C] 1,000 mg PO DAILY 12/20/15 Furosemide [Lasix] 40 mg PO BID 12/20/15 Apixaban [Eliquis] 5 mg PO BID 03/27/16 Amiodarone HCl 200 mg PO DAILY #30 tab 04/03/16 Arformoterol Tartrate [Brovana] 15 mcg IN BID #60 ml 04/03/16 Gabapentin [Neurontin] 100 mg PO BID #60 cap 04/03/16 Alendronate Sodium [Fosamax] 70 mg PO WKLY 05/05/16 Aspirin [Aspirin Adult Low Dose] 1 ea PO DAILY 05/05/16 Docusate Sodium [Colace] 100 mg PO BID 05/05/16 HYDROcodone 5MG/APAP 325MG [[place] 5/325] 1 - 2 ea PO Q4H PRN 05/05/16 Montelukast Sodium 10 mg PO BEDTIME 05/05/16 Multiple Vitamins W/ Minerals [Multi Complete] 1 cap PO DAILY 05/05/16 Pantoprazole Sodium [Protonix] 40 mg PO DAILY 05/05/16 Roflumilast [Daliresp] 500 mcg PO DAILY 05/05/16 Sennosides [Senna] 8.6 mg PO BID PRN 05/05/16 predniSONE [Prednisone] 5 mg PO BEDTIME 05/05/16 predniSONE [Prednisone] 10 mg PO DAILY 05/05/16 Albuterol Sulfate Nebs [Proventil Nebs] 1 ea INH QID PRN #0 05/18/16 Ipratropium/Albuterol [Duoneb] 3 ml NEB QID #120 vial 05/18/16 LORazepam [Ativan] 1 mg PO TID PRN #90 tab 05/18/16 Metoprolol Succinate [Toprol Xl] 100 mg PO DAILY #0 tab.er.24 05/18/16 Transfer to Outside Facility - Transfer Information Accepting Provider:: dr holden Accepting Facility: [facility] Reason for Transfer: required specialist not available
[2016-06-02] MEDS ORDERED: HYDROcodone 5MG/APAP 325MG 1 EA TAB PO ONE (12:40)
[2016-06-02] MEDS ORDERED: LORazepam 0.5 MG TAB PO ONE (12:42)
[2016-06-02 13:06] VITALS: BP 126/65; TEMP 98.9; O2SAT 98
== END 2016-06-02 13:12 | disposition short-term general hospital (02) ==
LOC: ER 10:05
DX: T81.4XXA Infection following a procedure, initial encounter (principal); B99.9 Unspecified infectious disease; Z88.0 Allergy status to penicillin; Z88.2 Allergy status to sulfonamides; Z79.899 Other long term (current) drug therapy; J44.9 Chronic obstructive pulmonary disease, unspecified; E07.9 Disorder of thyroid, unspecified; I10 Essential (primary) hypertension; K21.9 Gastro-esophageal reflux disease without esophagitis; Z87.891 Personal history of nicotine dependence

== ENCOUNTER → 2016-07-10 | Outpatient (CLI) | payer MEDICARE, OTHER | END | disposition home or self-care (01) | LOC: GT 08:24 | PROVIDERS: ATTEND Family Medicine | DX: Z79.899 Other long term (current) drug therapy (principal); S72.141D Displaced intertrochanteric fracture of right femur, subsequent encounter for closed fracture with routine healing; J44.9 Chronic obstructive pulmonary disease, unspecified; I48.91 Unspecified atrial fibrillation ==

== ENCOUNTER → 2016-07-17 | Outpatient (CLI) | payer MEDICARE, OTHER | END | disposition home or self-care (01) | LOC: GT 07:34 | PROVIDERS: ATTEND Family Medicine | DX: I48.91 Unspecified atrial fibrillation (principal); I10 Essential (primary) hypertension ==

== ENCOUNTER 2016-07-24 08:08 | Inpatient (IN) | payer MEDICARE, OTHER ==
--- NOTE | 2016-07-24 14:55 | HP ---
SUPERVISING PHYSICIAN: Nick Valiente MD CHIEF COMPLAINT: Severe dyspnea, wheezing. HISTORY OF PRESENT ILLNESS: Ms. Rodriguez is a 75-year-old, female patient with a significant history of chronic obstructive pulmonary disease. In the past year, the patient sustained a hip fracture requiring open reduction and internal fixation that was performed in [place]. Later in May, she was admitted to Swing Bed at [facility], which was then followed by rehab at [facility]. On June 02, she was sent back to the Emergency Room at which time she was transferred to [facility] for an infected hip with x-rays showing displaced hardware. Infectious disease started treatment with the patient on Levaquin with 4 months for pneumonia and osteomyelitis of the hip as well as vancomycin for 4 to 6 weeks for osteomyelitis. The patient then underwent hardware removal at [facility] by Dr. Crocker on 06/05/16 and then was later transferred to [facility] in [place] for rehab and continued IV antibiotics. Currently, she resides at [facility] for the completion of her IV vancomycin and continued rehab. The patient has requested that she have orthopedic care transferred to Dr. Wall in [place]. She was diagnosed with osteomyelitis of the right femur status post open reduction and internal fixation of the right hip and infected hardware removal on 06/04/16. The patient then underwent open reduction and internal fixation of the right hip and infected hardware removed. She then received IV medications that included vancomycin as well as Levaquin. She does have a PICC line in place and sees Dr. Valiente weekly for close monitoring. Today in the clinic followup visit, it was noted the patient was having significant difficulty maintaining O2 saturations with oxygen and was showing significant dyspnea. It was felt the patient was having an exacerbation of her chronic obstructive pulmonary disease and at that point, Dr. Valiente requested the patient be directly admitted for treatment of her exacerbation of chronic obstructive pulmonary disease as well as continued IV antibiotic therapy as prior to admission for the ongoing osteomyelitis and hip replacement. The patient was directly admitted to the Medical/Surgical Floor for continued treatment and evaluation. PAST MEDICAL HISTORY: 1. As noted in history of present illness, ongoing osteomyelitis in the right hip, right femur from previous internal fixation infection of hardware after sustaining a hip fracture in May. 2. Chronic obstructive pulmonary disease with multiple exacerbations and multiple hospitalizations within the last year. 3. Hypertension. 4. Hypothyroidism. 5. Hyperlipidemia. 6. Anxiety. 7. Peripheral vascular disease. 8. Pericarditis in 2009. 9. Chronic tobacco abuse previously in a COPD patient who wears chronic O2. 10. Osteoporosis. 11. Atrial fibrillation diagnosed in 2017 status post hip repair. 12. B12 deficiency. PAST SURGICAL HISTORY: 1. Fracture repair of right hip with open reduction and internal fixation with a Gamma nail in 05/19 with hardware displaced and wound becoming infected in 06/19 with the patient having hardware removed and receiving 6 weeks of IV vancomycin and 4 months of p.o. Levaquin. 2. Laminectomy. 3. Tubal ligation. 2. CURRENT MEDICAL PROVIDERS: Dr. Jackson, solar panel installer Dr. Aguilar, departmental buyer. Dr. Acevedo, pain management OUTPATIENT MEDICATIONS: 1. Amiodarone 200 mg daily. 2. Spiriva Respimat 2.5 mcg/1 actuation inhaler 2 puffs daily. 3. Daliresp 500 mcg daily. 4. Lasix 80 mg daily. 5. Levothyroxine 0.1 mg daily. 6. Metoprolol succinate 100 mg ER daily. 7. Singulair 10 mg at bedtime. 8. Ventolin inhaler 90 mcg/1 actuation 1 to 2 puffs q.4h. p.r.n. as needed. 9. Albuterol 0.082% nebulizer solution by nebulizer 3 to 4 times daily as needed. 10. Gabapentin 100 mg twice daily. 11. Senath 5 mg/325 mg 1 tablets q.4-6h. p.r.n. for pain. 12. Prednisone 10 mg daily. 13. Ativan 1 mg daily t.i.d. 14. Aspirin 81 mg Enteric Coated. 15. Colace 100 mg twice daily. 16. Protonix 40 mg Delayed Release in the morning. 17. Brovana 15 mcg/10 mL solution for inhalation 1 unit dose per nebulizer twice daily. 18. Potassium chloride 20 mEq Extended Release 1 daily. 19. Liudmila 8.6 mg tablet 1 in the morning as needed. ALLERGIES: PENICILLIN AND SULFA. FAMILY HISTORY: Noncontributory. SOCIAL HISTORY: The patient is . She has quit smoking, but has an extensive smoking history. She denies any alcohol or illicit drug use. REVIEW OF SYSTEMS: CONSTITUTIONAL: Denies any fevers, fatigue. RESPIRATORY: Negative for cough, but positive as noted in history of present illness for ongoing dyspnea, but negative for hemoptysis. CARDIOVASCULAR: Denies chest pain or palpitations, orthopnea, pedal edema or syncopal episodes. GASTROINTESTINAL: Denies abdominal pain, constipation, or diarrhea. GENITOURINARY: Denies dysuria, hematuria or other urinary symptoms. NEUROLOGIC: Negative for dizziness, headaches, or syncopal episodes. PHYSICAL EXAMINATION: VITAL SIGNS: Initial O2 on 2 liter nasal cannula on admission showed 86% at rest. Blood pressure 119/69. Respirations 22. Temperature 98.3. Admission weight 62.5 kg. GENERAL: The patient on admission is alert and oriented. She was in some mild distress, mildly anxious, but showed some improvement with breathing treatment and continued oxygen. HEENT: Tympanic membranes clear bilaterally. Oropharynx is pink, moist without any lesions. NECK: No jugular venous distention noted. Supple. CHEST: Notably significantly decreased throughout all lung field with a mild expiratory wheeze, but no rhonchi or rales. She was showing some mild purse- lipped breathing with some accessory respiratory muscle use with slightly prolonged expiratory phase. CARDIOVASCULAR: Regular rate and rhythm without any appreciable murmurs, gallops, or rubs. ABDOMEN: Soft, nontender. Positive bowel sounds. EXTREMITIES: There is no cyanosis, clubbing or edema. Pulses distally are strong with brisk capillary refill. NEUROLOGIC: The patient is alert and oriented times three. Cranial nerves II- XII are grossly intact. Facial features are symmetrical. Extraocular movements are within normal limits. There is no nystagmus noted. There are no notable localizing or focalizing neuromotor deficits. She did show some lower extremity weakness which is chronic from ongoing rehab to the right leg. LABORATORY: White count on admission was elevated at 26.9, but the patient has been on prednisone recently. Hemoglobin 13.3, hematocrit 41.8, platelet count 496,000, differential showed 8 bands with neutrophils 84. Chemistries showed low potassium 3.3 with slightly elevated carbon dioxide of 37, BUN 16, creatinine 0.82, serum osmolality 277, calcium 8.3. Liver functions within normal limits. Urinalysis pending. Most recent vancomycin trough was on was 15.3. Lactic acid pending. MICROBIOLOGY: Blood cultures pending. Sputum cultures pending. RADIOLOGY: Chest x-ray per radiologic interpretation of portable chest x-ray today showed left basilar pneumonia with a small left sided effusion and chronic obstructive pulmonary disease with possible small right upper lung nodule. ASSESSMENT: 1. Acute exacerbation of chronic obstructive pulmonary disease with chronic bronchitis, now showing early development of left basilar pneumonia with the patient having been on long-term therapy with vancomycin and started on Levaquin, possibly health care acquired with the patient being afebrile. 2. Leukocytosis secondary to developing pneumonia with ongoing treatment for osteomyelitis of the right hip and possibly secondary to some demargination from chronic corticosteroid administration. 3. History of right hip fracture requiring open reduction and internal fixation with Gamma nail in 05/19 with hardware displaced and wound becoming infected in 06/19 requiring hardware removal and current ongoing therapy IV antibiotics to include 6 weeks of vancomycin and 4 months of p.o. Levaquin. 4. Hypertension. 5. Anxiety. 6. History of hypothyroidism on supplementation. 7. Mild electrolyte imbalance with hypokalemia. 8. History of atrial fibrillation diagnosed in 2017. PLAN: The patient will be admitted to the hospital for concern of developing left basilar pneumonia with the patient having been on multiple antibiotics to include Levaquin and vancomycin. At this point, the patient is not showing signs of sepsis. We will await lactic acid and continue to provide antibiotic therapy as previous to admission with close monitoring. Given that she has some significant wheezing and advanced chronic obstructive pulmonary disease, we will start her on some steroids to include Solu-Medrol 125 mg initially to be followed with 80 mg q.6h. times 4 doses. At this point, we will not add additional antibiotics and await sputum culture and closely monitor clinically. Should she show any deterioration or change in clinical status, certainly we will need to add antibiotic therapy. We will anticipate at least 2 to 3 length of stay with aggressive pulmonary hygiene and bronchodilator therapy along with corticosteroid, probably the patient will show good clinical improvement and then can be discharged back to [facility] to continue with antibiotic therapy and ongoing physical therapy and rehabilitation. As the patient shows clinical improvement in the next 1 to 2 days, we will consult with Dr. Wall in regards to further management as well as consult with Dr. Miguel on antibiotic therapy given the patient's previous corticosteroid steroid history, underlying osteomyelitis, and now concerns for a pneumonia process. We will repeat CBC and CMP in the morning. If the patient continues to show elevated white count or shows any fever, certainly we will consult with Dr. Miguel, infectious disease , to assist with further management. Until discharge, we will continue to monitor the patient closely and treat appropriately. #[id number] [facility]
[2016-07-24] MEDS ORDERED: ONDANSETRON INJ 4 MG/2 ML VIAL IV PRN (15:09)
[2016-07-24] MEDS ORDERED: ACETAMINOPHEN 325 MG TAB PO PRN (15:09)
[2016-07-24] MEDS ORDERED: methylPREDNISolone SODIUM SUC 125 MG/2 ML VIAL IV ONE (15:23)
[2016-07-24] MEDS ORDERED: IV SET AND CAP CHANGE INJ INJ SCH (15:30)
[2016-07-24] MEDS: SODIUM CHLORIDE 0.9% (FLUSH) 10 ML SYG IV PRN (15:40)
[2016-07-24] MEDS: IPRATROPIUM/ALBUTEROL 3 ML VIAL INH SCH ×2 (16:35→19:27)
[2016-07-24] MEDS ORDERED: HYDROcodone 5MG/APAP 325MG 1 EA TAB PO PRN (16:38)
--- NOTE | 2016-07-24 16:53 | RAD ---
EXAM DESCRIPTION: Chest,2 Views CLINICAL HISTORY: exacerbation COPD COMPARISON: April 12, 2016 FINDINGS: The heart is at the upper limits of normal size. Mediastinal contours are otherwise unremarkable. A right-sided PICC line is present with its tip in the SVC. Is some ill-defined alveolar opacity in the left lung base which is new from the prior exam and suspicious for pneumonia. There is a possible small left-sided pleural effusion. There is a small nodular opacity projecting over the right upper lung. No right-sided airspace consolidation or definite right-sided effusion. The lungs are hyperinflated. There is no pneumothorax or acute rib fracture. There is compression of a single mid to lower thoracic vertebral body which is new from April,. IMPRESSION: Left basilar pneumonia with a small left-sided effusion. COPD with possible small right upper lung nodule. Chest CT is recommended. Mid to lower thoracic vertebral body compression fracture, new from April,. Electronically signed by: Rivas Patel MD 07/24/2016 4:52 PM CDT Workstation: [email or web address]
[2016-07-24] MEDS ORDERED: SODIUM CHLORIDE 0.9% (FLUSH) 10 ML SYG IV SCH ×2 (17:00→21:00)
[2016-07-24] MEDS ORDERED: VANCOMYCIN HCL INJ 1,000 MG VIAL IVPB ONE (17:31)
[2016-07-24] MEDS ORDERED: SODIUM CHLORIDE 0.9% 250ML 250 ML ONE (17:32)
[2016-07-24] MEDS: FUROSEMIDE 40 MG TAB PO SCH (17:34)
[2016-07-24] MEDS: SODIUM CHLORIDE 0.9% IVPB SCH (19:07)
[2016-07-24] MEDS: VANCOMYCIN HCL IVPB SCH (19:07)
[2016-07-24] MEDS: ARFORMOTEROL TARTRATE 15 MCG/2 ML NEB NEB SCH (19:38)
[2016-07-24] MEDS ORDERED: methylPREDNISolone SODIUM SUC 125 MG/2 ML VIAL ONE (20:06)
[2016-07-24] MEDS: GABAPENTIN 100 MG CAP PO SCH (21:15)
[2016-07-24] MEDS: predniSONE 10 MG TAB PO SCH (21:15)
[2016-07-24] MEDS: MONTELUKAST 10 MG TAB PO SCH (21:15)
[2016-07-24] MEDS: SODIUM CHLORIDE 0.9% (FLUSH) 10 ML SYG IV SCH (21:16)
[2016-07-24] MEDS: methylPREDNISolone SODIUM SUC 125 MG/2 ML VIAL IV SCH (21:17)
[2016-07-24] MEDS: LORazepam 1 MG TAB PO PRN (21:20)
[2016-07-24] MEDS ORDERED: levoFLOXacin 500MG IV 500 MG in PREMIX BAG 1 BAG IVPB ONE (21:49)
[2016-07-24] MEDS ORDERED: levoFLOXacin 500MG IV 100 ML IVPB ONE (22:11)
[2016-07-24] MEDS: KCL 20MEQ/0.45% NS 1,000 ML IVS PRN (22:12)
--- NOTE | 2016-07-24 23:34 | PCM.CORE ---
Physician DVT/VTE - Nurse DVT Assessment & Total Each Risk Factor Represents 3 Points: Age over 75 years, Medical PT with Hx of MA, CHF, Severe infection/sepsis Each Risk Factor Represents 2 Points: Centeral Venous Access Each Risk Factor Represents 1 Point: Hx of smoking past year Each Risk Factor is 1 Point: Serious Lung disease (pnemonia <1month, COPD, emphysema,etc) DVT Assessment Score: 10 - 5 or more Very High Risk Treatments: Early Ambulation *, Sequential Compression Device Pharmacological: Enoxaparin 40mg SQ Daily
[2016-07-24] MEDS ORDERED: ENOXAPARIN SODIUM 40 MG/0.4 ML SYG SUBCU SCH (23:45)
[2016-07-25] MEDS: ALBUTEROL SULFATE 2.5 MG/3 ML VIAL NEB PRN ×3 (02:15→15:45)
[2016-07-25] MEDS: methylPREDNISolone SODIUM SUC 125 MG/2 ML VIAL IV SCH ×4 (03:57→21:43)
[2016-07-25] MEDS ORDERED: VANCOMYCIN HCL INJ 1,000 MG VIAL IVPB ONE ×2 (04:02→16:31)
[2016-07-25] MEDS ORDERED: PANTOPRAZOLE SODIUM IV 40 MG VIAL ONE (04:02)
[2016-07-25] MEDS ORDERED: LEVOTHYROXINE SODIUM 0.1 MG TAB ONE (04:02)
[2016-07-25] MEDS ORDERED: SODIUM CHLORIDE 0.9% 250ML 250 ML ONE ×2 (04:02→16:30)
[2016-07-25] MEDS: LEVOTHYROXINE SODIUM 0.1 MG TAB PO SCH (05:51)
[2016-07-25] MEDS: VANCOMYCIN HCL IVPB SCH ×2 (06:18→18:28)
[2016-07-25] MEDS: SODIUM CHLORIDE 0.9% IVPB SCH ×2 (06:18→18:28)
[2016-07-25] MEDS ORDERED: PANTOPRAZOLE SODIUM IV 40 MG VIAL IV SCH (06:30)
[2016-07-25] MEDS ORDERED: PANTOPRAZOLE SODIUM TAB 40 MG PO SCH (06:30)
--- NOTE | 2016-07-25 07:25 | RAD ---
EXAM DESCRIPTION: Chest,1 View CLINICAL HISTORY: exacerbation COPD COMPARISON: July 24, 2016 FINDINGS: A right-sided PICC line remains in place. The cardiomediastinal silhouette is unremarkable. Bilateral interstitial opacities are noted with some patchy alveolar opacity in the mid right lung and left lung base, all stable or slightly worse from yesterday. The lung volumes are within normal range. No pleural effusion is seen. There is no pneumothorax or acute fracture. IMPRESSION: Interstitial and patchy alveolar opacities in both lungs as detailed above, stable or slightly worse from yesterday. Differential considerations include pneumonia or edema. Follow-up chest radiograph after treatment is recommended to document complete resolution. Nonvisualization of a nodular opacity in the right upper lung which was seen on yesterday's exam. This can be further evaluated with follow-up chest radiograph after treatment. Electronically signed by: Rivas Patel MD 07/25/2016 7:25 AM CDT Workstation: [facility]PITALStreamBase SystemsST. [facility]ANC[facility]
[2016-07-25] MEDS ORDERED: DULoxetine HCL 20 MG CAP PO ONE (07:33)
[2016-07-25] MEDS ORDERED: AMIODARONE HCL 200 MG TAB ONE (07:33)
[2016-07-25] MEDS ORDERED: METOPROLOL SUCCINATE XL 100 MG TAB PO ONE (07:33)
[2016-07-25] MEDS ORDERED: ASCORBIC ACID 500 MG TAB ONE (07:34)
[2016-07-25] MEDS ORDERED: BIFIDOBACTERIUM INFANTIS 4 MG CAP ONE (07:34)
[2016-07-25] MEDS: POTASSIUM CHLORIDE 20 MEQ TAB PO SCH (07:46)
[2016-07-25] MEDS: IPRATROPIUM/ALBUTEROL 3 ML VIAL INH SCH ×4 (08:47→20:48)
[2016-07-25] MEDS: NON-FORMULARY MEDICATION 1 EA MIS (Tiotropium Bromide Monohydrate [Spiriva Handihaler] 1 P INH SCH (08:47)
[2016-07-25] MEDS: LORazepam 1 MG TAB PO PRN ×2 (08:53→20:46)
[2016-07-25] MEDS: BIFIDOBACTERIUM INFANTIS 4 MG CAP PO SCH (08:54)
[2016-07-25] MEDS: DULoxetine HCL 20 MG CAP PO SCH (08:54)
[2016-07-25] MEDS: AMIODARONE HCL 200 MG TAB PO SCH (08:54)
[2016-07-25] MEDS: FUROSEMIDE 40 MG TAB PO SCH ×2 (08:54→17:31)
[2016-07-25] MEDS: ASCORBIC ACID 500 MG TAB PO SCH (08:54)
[2016-07-25] MEDS: predniSONE 10 MG TAB PO SCH ×2 (08:54→20:46)
[2016-07-25] MEDS: GABAPENTIN 100 MG CAP PO SCH ×2 (08:54→20:46)
[2016-07-25] MEDS: METOPROLOL SUCCINATE XL 100 MG TAB PO SCH (08:54)
[2016-07-25] MEDS ORDERED: levoFLOXacin 500 MG TAB PO SCH (09:00)
[2016-07-25] MEDS: ASPIRIN EC 81 MG TAB PO SCH (09:02)
[2016-07-25] MEDS: MULTIPLE VITAMINS W/ MINERALS 1 EA TAB PO SCH (09:02)
[2016-07-25] MEDS: SODIUM CHLORIDE 0.9% (FLUSH) 10 ML SYG IV PRN (09:04)
[2016-07-25] MEDS: SODIUM CHLORIDE 0.9% (FLUSH) 10 ML SYG IV SCH ×2 (09:05→20:46)
[2016-07-25] MEDS: NON-FORMULARY MEDICATION 1 EA MIS (Roflumilast [Daliresp] 500 MCG) PO SCH (09:05)
[2016-07-25] MEDS: ARFORMOTEROL TARTRATE 15 MCG/2 ML NEB NEB SCH ×2 (09:15→20:48)
[2016-07-25] MEDS ORDERED: CEFEPIME 2 GM VIAL IVPB ONE ×2 (09:52→20:09)
[2016-07-25] MEDS ORDERED: SODIUM CHLORIDE 0.9% 100ML 100 ML IVPB ONE (09:54)
[2016-07-25] MEDS: CEFEPIME 2 GM in SODIUM CHL 0.9% 50ML MIN-BAG+ 50 ML IVPB SCH ×2 (10:01→20:52)
[2016-07-25] MEDS ORDERED: LORazepam 0.5 MG TAB PO ONE (11:40)
[2016-07-25] MEDS: KCL 20MEQ/0.45% NS 1,000 ML IVS PRN (16:28)
[2016-07-25] MEDS ORDERED: VANCOMYCIN PER PHARMACY IVPB SCH (17:00)
--- NOTE | 2016-07-25 18:40 | PN ---
DATE: 07/25/16 SUPERVISING PHYSICIAN: Nick Valiente M.D. SUBJECTIVE: The patient is making very slow clinical progress. In fact this morning, she had a significant desaturation event while getting a breathing treatment. She has been coughing up some sputum and was able to produce one for culture, but yet remains afebrile. She continues to have some prominent wheezing and some mild increased respiratory effort at times, but after breathing treatments does well. OBJECTIVE: VITAL SIGNS: T max 98.6, pulse 82, blood pressure 134/68, respirations 18, satting 92% on nasal cannula at rest. I's and O's: She has had 1 bowel movement. She has had 1360 in but no documentation of output as she is without a catheter and utilizes an adult brief. LUNGS: Much better aeration today, but increasing rhonchi bilaterally with prominent wheezing more so expiratory than inspiratory with continued prolonged expiratory phase. HEART : Regular rate and rhythm. ABDOMEN: Soft, non-tender. Positive bowel sounds. EXTREMITIES: No clubbing, cyanosis or edema. NEUROLOGIC: She is alert and oriented times three. LABORATORY: White count has improved somewhat today to 21.8, hemoglobin and hematocrit stable at 12.9 and 40.7, platelet count 463,000. Differential shows some improvement, continues to show some bands but less than yesterday. Chemistries: Potassium remains low at 3.3, carbon dioxide actually has improved from previous day, now at 34. BUN and creatinine are stable at 17 and 0.82. Glucose is 135. BNP was slightly elevated at 196. Urinalysis is pending. Lactic acid on admission last night was 1.3. MICROBIOLOGY: Blood culture is pending. Sputum culture is pending. RADIOLOGY: Repeat chest x-ray today single view per radiology interpretation shows interstitial and patchy alveolar opacities in both lungs within the mid right lung and left lung base, all stable and slightly worse from yesterday. The lung volumes are normal. There are no pleural effusions noted. ASSESSMENT: 1. 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 2. Leukocytosis secondary to underlying pneumonia and osteomyelitis of the right hip chronically being treated showing some improvement since admission. 3. History of right hip fracture requiring open reduction and internal fixation with a gamma nail on 05/2016 with hardware displaced and wound becoming infected on 06/2016 requiring hardware removal and ongoing current IV antibiotic therapy to include 6 weeks of vancomycin and 4 months of p.o. Levaquin for osteomyelitis. 4. Hypertension. 5. Anxiety on Ativan. 6. History of hypothyroidism on supplementation. 7. Persistent mild electrolyte imbalance with hypokalemia. 8. History of atrial fibrillation diagnosed in 2017. PLAN: The patient has shown slow clinical progress, although her white count improved somewhat. Will continue with aggressive pulmonary hygiene and corticosteroids for an additional 24 hours. In regards to antibiotic therapy, given that she has had a previous sputum culture that was positive for Pseudomonas and now she is showing bilateral pneumonia, and having been on vancomycin and Levaquin, will add an additional antibiotic to include Cefipime again to cover for Pseudomonas and hospital-acquired pneumonia. The patient will be on bedrest until she is able to show clinical improvement in regards to her pulmonary function. Will continue to monitor the patient closely along with her repeat laboratory studies and followup chest x-rays. Once she shows some improvement, will consult with Dr. Wall in regards to treatment of the hip and followup with Dr. Miguel as well in regards to further antibiotic therapy. Anticipate length of stay to be at least an additional 3 to 4 days. Until then , continue to monitor the patient closely and treat appropriately. #[id number] [facility]
[2016-07-25] MEDS ORDERED: SODIUM CHL 0.9% 50ML MIN-BAG+ 50 ML IVPB ONE (20:08)
[2016-07-25] MEDS ORDERED: levoFLOXacin 250MG IV 50 ML IVPB ONE (20:09)
[2016-07-25] MEDS: ENOXAPARIN SODIUM 40 MG/0.4 ML SYG SUBCU SCH (20:45)
[2016-07-25] MEDS: MONTELUKAST 10 MG TAB PO SCH (20:46)
[2016-07-25] MEDS: levoFLOXacin 250MG IV 250 MG in PREMIX BAG 1 BAG IVPB SCH (21:43)
[2016-07-26] MEDS: ALBUTEROL SULFATE 2.5 MG/3 ML VIAL NEB PRN ×2 (01:39→05:00)
[2016-07-26] MEDS ORDERED: PANTOPRAZOLE SODIUM IV 40 MG VIAL ONE (03:27)
[2016-07-26] MEDS: methylPREDNISolone SODIUM SUC 125 MG/2 ML VIAL IV SCH ×3 (03:31→16:34)
[2016-07-26] MEDS ORDERED: VANCOMYCIN HCL INJ 1,000 MG VIAL IVPB ONE ×3 (05:01→19:02)
[2016-07-26] MEDS ORDERED: SODIUM CHLORIDE 0.9% 250ML 250 ML ONE ×3 (05:01→19:02)
[2016-07-26] MEDS ORDERED: PANTOPRAZOLE SODIUM TAB 40 MG PO ONE (05:16)
[2016-07-26] MEDS: VANCOMYCIN HCL IVPB SCH ×2 (06:03→19:16)
[2016-07-26] MEDS: SODIUM CHLORIDE 0.9% IVPB SCH ×2 (06:03→19:16)
[2016-07-26] MEDS: LEVOTHYROXINE SODIUM 0.1 MG TAB PO SCH (06:03)
[2016-07-26] MEDS: PANTOPRAZOLE SODIUM TAB 40 MG PO SCH (06:03)
--- NOTE | 2016-07-26 07:00 | RAD ---
EXAM: Single view chest. INDICATION: Chest pain. COMPARISON: Chest x-ray: 07/25/2016. FINDINGS: Again noted are patchy interstitial and airspace opacities within the right upper lobe and left lung base. The heart size is stable. There is no pneumothorax or pleural effusion. The right PICC terminates within the SVC. The bones are unchanged. IMPRESSION: Patchy interstitial and airspace opacities within the right upper lobe and left lung base, similar to the prior. This may represent multifocal pneumonia. Electronically signed by: Jef Salter MD 07/26/2016 7:00 AM CDT Workstation: [id number]
[2016-07-26] MEDS ORDERED: SODIUM CHL 0.9% 50ML MIN-BAG+ 50 ML IVPB ONE ×2 (07:44→20:45)
[2016-07-26] MEDS ORDERED: CEFEPIME 2 GM VIAL IVPB ONE ×2 (07:46→20:46)
[2016-07-26] MEDS: POTASSIUM CHLORIDE 20 MEQ TAB PO SCH (07:58)
[2016-07-26] MEDS: ARFORMOTEROL TARTRATE 15 MCG/2 ML NEB NEB SCH ×2 (08:45→19:20)
[2016-07-26] MEDS: IPRATROPIUM/ALBUTEROL 3 ML VIAL INH SCH ×4 (08:45→19:20)
[2016-07-26] MEDS: DULoxetine HCL 20 MG CAP PO SCH (08:54)
[2016-07-26] MEDS: METOPROLOL SUCCINATE XL 100 MG TAB PO SCH (08:54)
[2016-07-26] MEDS: predniSONE 10 MG TAB PO SCH ×2 (08:54→20:58)
[2016-07-26] MEDS: AMIODARONE HCL 200 MG TAB PO SCH (08:54)
[2016-07-26] MEDS: ASPIRIN EC 81 MG TAB PO SCH (08:54)
[2016-07-26] MEDS: GABAPENTIN 100 MG CAP PO SCH ×2 (08:54→20:59)
[2016-07-26] MEDS: FUROSEMIDE 40 MG TAB PO SCH ×2 (08:54→17:02)
[2016-07-26] MEDS: LORazepam 1 MG TAB PO PRN ×2 (08:55→20:59)
[2016-07-26] MEDS: MULTIPLE VITAMINS W/ MINERALS 1 EA TAB PO SCH (08:55)
[2016-07-26] MEDS: BIFIDOBACTERIUM INFANTIS 4 MG CAP PO SCH (08:55)
[2016-07-26] MEDS: ASCORBIC ACID 500 MG TAB PO SCH (08:55)
[2016-07-26] MEDS: NON-FORMULARY MEDICATION 1 EA MIS (Roflumilast [Daliresp] 500 MCG) PO SCH (08:56)
[2016-07-26] MEDS: SODIUM CHLORIDE 0.9% (FLUSH) 10 ML SYG IV SCH ×2 (08:56→20:59)
[2016-07-26] MEDS ORDERED: FLUCONAZOLE 150 MG TAB PO ONE (09:10)
[2016-07-26] MEDS ORDERED: LORazepam 1 MG TAB PO ONE (09:35)
[2016-07-26] MEDS: CEFEPIME 2 GM in SODIUM CHL 0.9% 50ML MIN-BAG+ 50 ML IVPB SCH ×2 (10:38→21:00)
[2016-07-26] MEDS: KCL 40MEQ/NS 1,000 ML IVS PRN (10:40)
[2016-07-26] MEDS: [UNRECOGNIZED DRUG - OTHER] TOP SCH ×2 (10:40→21:00)
[2016-07-26] MEDS: NON-FORMULARY MEDICATION 1 EA MIS (Tiotropium Bromide Monohydrate [Spiriva Handihaler] 1 P INH SCH (11:05)
[2016-07-26] MEDS: TIOTROPIUM INHALER INH SCH (11:05)
[2016-07-26] MEDS: NYSTATIN POWDER 15GM BTTL TOP SCH ×3 (13:25→21:00)
--- NOTE | 2016-07-26 15:43 | PN ---
DATE: 07/26/16 SUPERVISING PHYSICIAN: Suleman Boles M.D. SUBJECTIVE: The patient today clinically looks a little better than yesterday. She is not quite as dyspneic, showing no evidence of distress but continues to produce copious amounts of sputum, but remains afebrile. She has not had any reports of diarrhea, nausea or vomiting. OBJECTIVE: VITAL SIGNS: T max 98.5, pulse 72, blood pressure 172/87, respirations 18, O2 sat 98% on nasal cannula at rest. I's and O's are not adequately measured as she is incontinent. She has had 1 bowel movement. Weight currently is 62.5 kg. CHEST: Lungs today are somewhat improved in regards to aeration, although diminished towards the bases. There are no obvious rhonchi or rales. Very faint expiratory wheezing today compared to admission. HEART: Regular rate and rhythm. ABDOMEN: Obese, non-tender. Positive bowel sounds. EXTREMITIES: There is no clubbing, cyanosis or edema. NEUROLOGIC: She is alert and oriented times three. LABORATORY: White count remains elevated at 29.6 with hemoglobin of 12.6, hematocrit 39.6, platelet count 480,000. Differential continues to show a bandemia and an increased neutrophil count with a left shift. Chemistries: Potassium has improved slightly from previous days at 3.4, carbon dioxide appears to be stable. BUN is increased slightly to 22, creatinine remains within normal limits at 0.74, glucose is 157. MICROBIOLOGY: Preliminary cultures show presumptive proteus species with sensitivities pending. Blood cultures remain negative at 24 hours. RADIOLOGY: Chest x-ray today per radiology interpretation shows patchy interstitial and airspace opacities within the upper lobe and left lung base similar to previous exams possibly representing multifocal pneumonia. ASSESSMENT: 1. 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 The patient has remained afebrile since admission but does have a previous history of previous pneumonia from Pseudomonas with culture results presumptively today showing a Proteus species. The patient remains on Cefepime, vancomycin and Levaquin. 2. Leukocytosis, persistent secondary to underlying pneumonia and osteomyelitis as well as some demarginalization from aggressive corticosteroid usage with the patient having the right hip chronically being treated for osteomyelitis showing improvement initially but continues to be elevated now with continued treatment with corticosteroids. 3. History of right hip fracture requiring open reduction and internal fixation with a gamma nail that was performed on 05/29/16 with the hardware displaced later and wound becoming infected on 06/2016 at that time requiring hardware removal and ongoing current IV antibiotic therapy that included 6 weeks of vancomycin and 4 months of p.o. Levaquin for underlying osteomyelitis. 4. Hypertension. 5. Anxiety on Ativan. 6. History of hypothyroidism on supplementation. 7. Persistent electrolyte imbalance with hypokalemia although showing some improvement. 8. History of atrial fibrillation diagnosed in 2017. 9. Left heel pressure ulcer, chronic prior to admission with ongoing wound management. PLAN: Will continue with antibiotic therapy currently with vancomycin, Levaquin and Cefipime, and await final culture results of the sputum to further target antibiotic therapy. Hopefully regarding the species if is truly Proteus , is fairly sensitive and once results are finalized we can further target antibiotic therapy. She does show some good clinical improvement, although x- rays are not improving as fast. Will continue to monitor radiographic studies daily along with laboratory studies. Will continue with Solu-Medrol. Since she has improve somewhat, will lower the dosage today and continue with aggressive pulmonary hygiene. Will anticipate hopefully discharge later this week, possibly Sunday or Sunday. The patient does have some areas of redness and excoriation to her rambo area secondary to being incontinent and the patient refusing to rotate periodically. Will go ahead and start her on some Nystatin powder to keep her dry as well as give her a 1 time Diflucan to hopefully prevent any underlying yeast infection. Again, the patient is encouraged to rotate off her back at every 2 to 3 hours to prevent skin breakdown. Until then , will continue to monitor the patient closely and treat appropriately. #[id number] [facility]
[2016-07-26] MEDS ORDERED: levoFLOXacin 250MG IV 50 ML IVPB ONE (20:46)
[2016-07-26] MEDS: ENOXAPARIN SODIUM 40 MG/0.4 ML SYG SUBCU SCH (20:58)
[2016-07-26] MEDS: MONTELUKAST 10 MG TAB PO SCH (20:59)
[2016-07-26] MEDS: levoFLOXacin 250MG IV 250 MG in PREMIX BAG 1 BAG IVPB SCH (22:40)
[2016-07-27] MEDS: ALBUTEROL SULFATE 2.5 MG/3 ML VIAL NEB PRN ×2 (00:15→04:42)
[2016-07-27] MEDS: KCL 40MEQ/NS 1,000 ML IVS PRN ×2 (03:04→14:44)
[2016-07-27] MEDS: LEVOTHYROXINE SODIUM 0.1 MG TAB PO SCH (05:59)
[2016-07-27] MEDS: PANTOPRAZOLE SODIUM TAB 40 MG PO SCH (05:59)
[2016-07-27] MEDS ORDERED: SODIUM CHL 0.9% IVPB SCH (07:00)
[2016-07-27] MEDS ORDERED: VANCOMYCIN HCL IVPB SCH (07:00)
[2016-07-27] MEDS ORDERED: MINI IVPB SCH (07:00)
[2016-07-27] MEDS ORDERED: VANCOMYCIN HCL INJ 500 MG VIAL ONE ×2 (07:44→09:15)
[2016-07-27] MEDS ORDERED: SODIUM CHL 0.9% 100ML MINI-BAG 0 ML IVPB ONE (07:45)
[2016-07-27] MEDS ORDERED: SODIUM CHL 0.9% 50ML MIN-BAG+ 50 ML IVPB ONE (07:47)
[2016-07-27] MEDS ORDERED: CEFEPIME 2 GM VIAL IVPB ONE (07:48)
[2016-07-27] MEDS: POTASSIUM CHLORIDE 20 MEQ TAB PO SCH (08:01)
[2016-07-27] MEDS: IPRATROPIUM/ALBUTEROL 3 ML VIAL INH SCH ×2 (08:30→12:19)
[2016-07-27] MEDS: ARFORMOTEROL TARTRATE 15 MCG/2 ML NEB NEB SCH (08:30)
[2016-07-27] MEDS: GABAPENTIN 100 MG CAP PO SCH (08:31)
[2016-07-27] MEDS: LORazepam 1 MG TAB PO PRN ×2 (08:31→14:43)
[2016-07-27] MEDS: TIOTROPIUM INHALER INH SCH (08:32)
[2016-07-27] MEDS: BIFIDOBACTERIUM INFANTIS 4 MG CAP PO SCH (08:32)
[2016-07-27] MEDS: predniSONE 10 MG TAB PO SCH (08:32)
[2016-07-27] MEDS: METOPROLOL SUCCINATE XL 100 MG TAB PO SCH (08:32)
[2016-07-27] MEDS: MULTIPLE VITAMINS W/ MINERALS 1 EA TAB PO SCH (08:32)
[2016-07-27] MEDS: DULoxetine HCL 20 MG CAP PO SCH (08:32)
[2016-07-27] MEDS: FUROSEMIDE 40 MG TAB PO SCH (08:32)
[2016-07-27] MEDS: AMIODARONE HCL 200 MG TAB PO SCH (08:32)
[2016-07-27] MEDS: ASPIRIN EC 81 MG TAB PO SCH (08:32)
[2016-07-27] MEDS: NON-FORMULARY MEDICATION 1 EA MIS (Roflumilast [Daliresp] 500 MCG) PO SCH (08:33)
[2016-07-27] MEDS: NYSTATIN POWDER 15GM BTTL TOP SCH ×2 (08:33→11:43)
[2016-07-27] MEDS: ASCORBIC ACID 500 MG TAB PO SCH (08:35)
[2016-07-27] MEDS: [UNRECOGNIZED DRUG - OTHER] TOP SCH (08:36)
[2016-07-27] MEDS ORDERED: methylPREDNISolone SODIUM SUC 125 MG/2 ML VIAL IV SCH (09:00)
[2016-07-27] MEDS: SODIUM CHLORIDE 0.9% (FLUSH) 10 ML SYG IV SCH (09:03)
[2016-07-27] MEDS ORDERED: SODIUM CHL 0.9% 100ML MINI-BAG 100 ML IVPB ONE (09:15)
--- NOTE | 2016-07-27 10:34 | RAD ---
Study: Single Frontal View of the Chest. Indication:pneumonia Comparison: July 26, 2016. Impression: Stable PICC line. Mild cardiomegaly. Stable patchy consolidative changes bilateral lungs concerning for pneumonia. Tiny pleural effusions stable. No pneumothorax. Electronically signed by: Solitario Beaver MD 07/27/2016 10:34 AM CDT
[2016-07-27] MEDS: CEFEPIME 2 GM in SODIUM CHL 0.9% 50ML MIN-BAG+ 50 ML IVPB SCH (10:48)
[2016-07-27 15:22] VITALS: BP 135/50; TEMP 98.4; O2SAT 95
--- NOTE | 2016-08-03 14:55 | DS ---
SUPERVISING PHYSICIAN: Suleman Boles MD DISCHARGE DIAGNOSIS: 1. Acute exacerbation of chronic obstructive pulmonary disease with multifocal pneumonia in the left base and right middle lobe, hospital acquired with the patient having a longstanding history of antibiotic therapy that included vancomycin and Levaquin and also resides in a long-term care facility. The patient remained afebrile since admission and has a history of previous pneumonia with pseudomonas with final culture results showing a proteus mirabilis with resistance to fluoroquinolones. Since admission, the patient had been on cefepime, vancomycin and Levaquin. The patient failed to make significant improvement, requiring higher level of care transfer. 2. Leukocytosis, persistent, secondary to underlying pneumonia as noted in sputum with proteus mirabilis as well as osteomyelitis history as well as demargination from aggressive corticosteroid usage with the patient having right hip chronically being treated for osteomyelitis and showing improvement initially, but continued to show an elevation with continued treatment with corticosteroids despite aggressive antibiotic therapy. The patient was without any significant signs of sepsis with a normal lactic acid prior to discharge. 3. History of right hip fracture requiring open reduction and internal fixation with Gamma nail performed on 05/29/16 with hardware displaced later and wound becoming infected in 06/19, at that time requiring hardware removal and current ongoing therapy IV antibiotic therapy to include 6 weeks of vancomycin to finish on 07/28/16 and 4 months of p.o. Levaquin for underlying osteomyelitis. 4. Hypertension. 5. Anxiety, requiring Ativan. 6. History of hypothyroidism on supplementation. 7. Persistent electrolyte imbalance with hypokalemia, although showing some improvement prior to discharge. 8. History of atrial fibrillation diagnosed in 2017. 9. Chronic heel stasis ulcer prior to admission with ongoing wound management. HISTORY OF PRESENT ILLNESS: Ms. Rodriguez is a 75-year-old, female patient with a significant history of chronic obstructive pulmonary disease. In the past year, the patient sustained a hip fracture requiring open reduction and internal fixation that was performed in [place]. Later in May, she was admitted to Swing Bed at [facility], which was then followed by rehab at [facility]. On June 02, she was sent back to the Emergency Room at which time she was transferred to [facility] for an infected hip with x-rays showing displaced hardware. Infectious disease started treatment with the patient on Levaquin with 4 months for pneumonia and osteomyelitis of the hip as well as vancomycin for 4 to 6 weeks as well for osteomyelitis. The patient then underwent hardware removal at [facility] [place] by Dr. Crocker on 06/05/16 and then was later transferred to [facility] in [place] for rehab and continued IV antibiotics. Currently, she resides at [facility] for the completion of her IV vancomycin and continued rehab. The patient has requested that she have orthopedic care transferred to Dr. Wall in [place]. She was diagnosed with osteomyelitis of the right femur status post open reduction and internal fixation of the right hip and infected hardware removal on . The patient then underwent open reduction and internal fixation of the right hip and infected hardware removed. She then received IV medications that included vancomycin as well as Levaquin. She does have a PICC line in place and sees Dr. Valiente weekly for close monitoring. On date of admission in the clinic followup visit, it was noted the patient was having significant difficulty maintaining O2 saturations with oxygen and was showing significant dyspnea. It was felt the patient was having an exacerbation of her chronic obstructive pulmonary disease and at that point, Dr. Valiente requested the patient be directly admitted for treatment of her exacerbation of chronic obstructive pulmonary disease as well as continued IV antibiotic therapy as prior to admission for the ongoing osteomyelitis of the hip. The patient was directly admitted to the Medical/Surgical Floor for continued treatment and evaluation. LABORATORY: White count on admission did show leukocytosis of 26.9. This persisted and showed to be worsened by day of transfer up to 33,000 on transfer. Hemoglobin and hematocrit were stable and at discharge were 12.6 and 30.4. Platelet count elevated with a mild thrombocytopenia and thrombocytosis and at discharge was 505,000. Differential did show elevated bands and a left shift. Chemistries initially on admission electrolytes showed potassium 3.3, carbon dioxide 37, anion gap 10.3. Through the admission and treatment, on date of discharge and transfer, her potassium had normalized and her carbon dioxide was noted to be fairly steady at 34. On discharge, BUN was 25, creatinine 0.89, osmolality 280, lactic acid initially on admission was 1.3 and on date of discharge was 2.0. Calcium 8.2. BNP was slightly elevated at 196. Urinalysis was within normal limits. She had two vancomycin troughs, one on that was 15.3 and one 07/27/16 that was 20.7. MICROBIOLOGY: Two sets of blood cultures remained negative after 5 days. Sputum culture showed proteus mirabilis with sensitivity pattern indicating resistance to ampicillin, ciprofloxacin, Levaquin, nitrofurantoin, and tetracycline and sensitive to cefepime which the patient was initiated on on admission. Please refer to that final report for full details. RADIOLOGY: Initially in the Emergency Department, she had a chest x-ray and per radiologic interpretation showed left basilar pneumonia with a small left sided effusion. On the date of discharge on 07/27/16, repeat chest x-ray per radiologic interpretation showed stable patchy consolidative process bilateral lungs secondary to pneumonia. HOSPITAL COURSE: Ms. Rodriguez, as noted in history of present illness, was admitted for exacerbation of chronic obstructive pulmonary disease with concerns for pneumonia, which did finally show through admission to be multifocal. She had a sputum culture that grew out proteus mirabilis. She remained fairly stable through the hospitalization, but failed to show good clinical improvement in regards to her lung function despite aggressive corticosteroids on admission and continued through the admission phase. It was felt on the date of discharge that the patient had maximized her clinical efforts at [facility] and need the services of pulmonology as well as infectious disease regarding her past history and current pneumonia. Therefore , a request for transfer was secured to [facility] [place]. The patient was accepted in transfer by Dr. Sorenson. I also did talk to Dr. Miguel, infectious disease specialist, prior to this process who requested the patient be transferred for higher level of care regarding her extensive antibiotic therapy for her osteomyelitis, pneumonia, and ongoing current pneumonia as the patient was at severe high risk for other infections as she was severely immunocompromised secondary to steroid administration. She was to be transferred by ambulance to [facility] [place] for higher level of care and specialties not available at [facility]. PLAN: Ms. Rodriguez was transferred via ground ambulance to [facility] [place] as noted above. She was instructed to have followup with Dr. Valiente, her primary care physician, after she was discharged. She left by ground ambulance accompanied by a information security manager. CONDITION ON DISCHARGE: Fair and stable. #[id number] [facility]
== END 2016-07-27 13:10 | disposition short-term general hospital (02) | DRG 190 ==
LOC: GT 08:08 → MS 14:40
PROVIDERS: ADMIT Nurse Practitioner Family; ATTEND Nurse Practitioner Family
DX: J44.0 Chronic obstructive pulmonary disease with (acute) lower respiratory infection (principal); J15.6 Pneumonia due to other Gram-negative bacteria; M86.8X5 Other osteomyelitis, thigh; L97.409 Non-pressure chronic ulcer of unspecified heel and midfoot with unspecified severity; J44.1 Chronic obstructive pulmonary disease with (acute) exacerbation; I10 Essential (primary) hypertension; F41.9 Anxiety disorder, unspecified; E03.9 Hypothyroidism, unspecified; E87.6 Hypokalemia; I87.2 Venous insufficiency (chronic) (peripheral); I48.91 Unspecified atrial fibrillation; E78.5 Hyperlipidemia, unspecified; I73.9 Peripheral vascular disease, unspecified; M81.0 Age-related osteoporosis without current pathological fracture; E53.8 Deficiency of other specified B group vitamins; F17.210 Nicotine dependence, cigarettes, uncomplicated; Z79.52 Long term (current) use of systemic steroids; Z99.81 Dependence on supplemental oxygen; Z79.82 Long term (current) use of aspirin; Z79.899 Other long term (current) drug therapy; Z88.0 Allergy status to penicillin; Z88.2 Allergy status to sulfonamides